=== PATIENT | male | born 1975 | race Caucasian/White ===

== ENCOUNTER 2022-03-14 11:39 | Emergency (ER) | payer MEDICAID, SELFPAY ==
[2022-03-14 11:53] VITALS: BP 152/78; PULSE 95; O2SAT 100
[2022-03-14 11:57] VITALS: BP 142/91; PULSE 99; RESP 20; TEMP 36.6; O2SAT 94; BMI 28.7
[2022-03-14 12:43] VITALS: PULSE 83; RESP 17; O2SAT 97
[2022-03-14] MEDS: ondansetron HCL 4 MG/2 ML VIAL IVPUSH (12:43)
--- NOTE | 2022-03-14 13:17 | ED.GENADULT ---
HPI - General Adult General Chief complaint: Overdose Stated complaint: OD,NARCAN GIVEN BY BYSTANDER W/GOOD RESULT PER EMS Time Seen by Provider: 03/14/22 12:10 Source: patient Mode of arrival: ambulatory Limitations: no limitations History of Present Illness HPI narrative: 46-year-old male history of substance abuse presents to the ED for overdose. Patient overdose on drugs and was given 4 mg Narcan by bystander and 2 mg given by EMS. Patient awaking and responded to Narcan. Patient has upper lip abscess. Patient does not want detox. Patient vomited and then just wants to sleep. Will re-evaluate Related Data Previous Rx's Medication Instructions Recorded cephalexin 500 mg capsule 500 mg PO QID 7 Days #28 cap 03/14/22 doxycycline hyclate 100 mg capsule 100 mg PO BID 7 Days #14 cap 03/14/22 Allergies Allergy/AdvReac Type Severity Reaction Status Date / Time No Known Allergies Allergy Unverified 07/16/20 15:17 [No Known Allergies*] Review of Systems Review of Systems: Overdose. Upper lip abscess Yes all other systems are reviewed and are negative [facility] Social History Social History Advance Directives: No Advance Directives Information Provided: No Physical Exam ED Vital Signs: Vital Signs - 24 hr 03/14/22 11:57 03/14/22 12:43 03/14/22 19:14 Temperature 97.8 F 98.7 F Pulse Rate 99 83 69 Respiratory Rate 20 17 16 Blood Pressure 142/91 H 123/77 Pulse Oximetry 94 97 94 BMI result Body Mass Index 28.7 Const General: cooperative, healthy appearing, comfortable, no acute distress and well developed Orientation/consciousness: patient oriented x3 HENMT Head: Yes normal to inspection, Yes No palpable skull fracture present, Yes normocephalic, Yes atraumatic and No abrasion Nose image: 1. Positive for redness and swelling. Rest of oral exam normal. 2. Small yellow drainage. Eyes General: appearance normal, both eyes and all related structures Neck Neck: Yes normal visual inspection, Yes full ROM, Yes no lymphadenopathy, Yes no meningeal signs, Yes trachea midline, Yes supple, No anterior neck swelling and No tender Chest Chest palpation & inspection: normal inspection of the chest and normal palpation of entire chest wall Resp Effort & Inspection: normal respiratory effort and able to speak in complete sentences Auscultation: clear to auscultation bilaterally Cardio Jugular venous distension: no JVD Heart sounds: S1 normal heart sound present and S2 normal heart sound present GI Inspection: Yes normal to inspection and No abdominal wall ecchymosis Palpation (GI): Soft to palpation, not firm, nontender, no guarding and not rigid General: No CVA tenderness and Yes no CVA tenderness Back/Spine/Pelvis Back: no CVA tenderness, No CVA tenderness and No back tenderness Skin General skin exam: no rashes or lesions noted and elasticity normal Neuro General: patient oriented x3, gait normal, no meningeal signs and CN's II-XI intact bilaterally Cranial nerves: Yes CN's II-XII intact bilaterally Extrem General: Yes normal to inspection and Yes full ROM Psych Appearance: grossly normal, well kempt and not disheveled Course Course Course Narrative: Patient placed on 2 L oxygen. Patient was vomiting so used given Zofran. Will address upper lip abscess. Reevaluation(s) Reevaluation #1: Patient alert oriented x3. Patient evaluated by care team/assistant women's soccer coach Sai and he was given resources for outpatient detox for opiate abuse. Patient admits to taking opioids which causes overdose. Patient states overdose was accidental. Bedside ultrasound was placed on the left upper lip and shows cellulitis cobblestone changes and no abscess to drained. Patient states for the past couple days he has been squeezing the pus out. Patient states initially he shaved and had a pimple above his top lip and then kept popping it and then it became swollen. Patient states for the past 4 days she started squeezing pus out. Patient will be discharged with antibiotic. Rest oral exam normal. Oral exam negative for uvular swelling, tongue swelling, dental/gum abscess, tongue floor, or swelling of neck/mandibular. No indication for incision and drainage. Time: 18:06 Medical Decision Making MDM Narrative Medical decision making narrative: Opioid abuse. Cellulitis Discharge Plan Discharge Clinical Impression: Opioid abuse, Cellulitis and abscess of face Patient Disposition: Home, Self-Care Instructions: Cellulitis (DC), Opioid Use Disorder (ED) Additional Instructions: Return to the ED for increased swelling of lips, sensation of throat closing, drooling, shortness of breath, chest pain, weakness, dizziness, worsening redness, or any other concerning symptoms. Please follow-up with primary care provider. Please follow-up with referrals to detox program given to her by assistant women's soccer coach/care team reimbursement consultant. Prescriptions: New cephalexin 500 mg capsule 500 mg PO QID 7 Days Qty: 28 0RF doxycycline hyclate 100 mg capsule 100 mg PO BID 7 Days Qty: 14 0RF Print Language: Swedish
--- NOTE | 2022-03-14 15:25 | MHC.RECOVSUP ---
Recovery Support note: Patient is a 46 year old male who presented to [facility] ED after an accidental overdose. This typewriter mechanic attempted to meet with patient to offer SUDE however patient is resting comfortably and not easily aroused at this time. Recovery Team will follow up with patient later on.
--- NOTE | 2022-03-14 16:56 | HO.SUDE ---
SUDE Patient is a 46 year old [place] speaking male who presented to [facility] ED after an accidental overdose. Patient reports he was recently released from incarceration and starting using yesterday due to life stressors. Patient is currently staying with his mother however reports that he cannot stay there permanently. Patient reports he has a geriatric social worker who is assisting him as he transitions out of incarceration. Patient has an appointment at the [facility] to get started on Suboxone. Patient is interested in therapy and recovery coaching and plans to engage in these services through [facility]. Patient reports previous overdoses occurring prior to incarceration. Patient has a history of multiple periods of incarceration. Patient has been psychiatrically hospitalized extensively in the past and has been diagnosed with bipolar disorder. Discussed outpatient recovery supports with patient. Education and information regarding [facility] provided to patient. Patient also provided with contact information for the Recovery Support Team in the event that he has questions or concerns after discharge.
[2022-03-14 19:14] VITALS: BP 123/77; PULSE 69; RESP 16; TEMP 37.1; O2SAT 94
[2022-03-14] MEDS: cephALEXin 500 MG CAPSULE PO (19:36)
[2022-03-14 23:29] VITALS: BP 126/78; PULSE 86; RESP 18; O2SAT 95
[2022-03-15 00:05] VITALS: RESP 18; O2SAT 95
[2022-03-15 02:40] VITALS: BP 132/74; PULSE 82; RESP 18; O2SAT 95
[2022-03-15 05:38] VITALS: BP 157/79; PULSE 83; RESP 16; O2SAT 95
[2022-03-15 07:47] VITALS: BP 126/67; PULSE 82; RESP 18; O2SAT 98
--- NOTE | 2022-03-15 07:49 | PC.NURSE ---
pt awake. nad. lip swollen. feels ready for discharge.
[2022-03-15 09:46] VITALS: BP 120/60; PULSE 78; RESP 18; TEMP 36.8; O2SAT 98
== END 2022-03-15 09:48 | disposition home or self-care (01) ==
PROVIDERS: Emergency Provider Emergency Medicine
DX: T40.1X1A Poisoning by heroin, accidental (unintentional), initial encounter (principal); Y92.9 Unspecified place or not applicable; K13.0 Diseases of lips; Z79.899 Other long term (current) drug therapy
CPT/HCPCS: 96374; 99284; J2405

== ENCOUNTER 2022-03-22 05:24 | Emergency (ER) | payer MEDICAID, SELFPAY ==
[2022-03-22 05:31] VITALS: BP 134/87; PULSE 81; RESP 20; TEMP 36.8; O2SAT 97; BMI 29.0
--- NOTE | 2022-03-22 05:36 | ED_ITS ---
HPI - Overdose General Chief Complaint: ETOH/Substance Use Stated Complaint: OVERDOSE/COCAINE Time Seen by Provider: 03/22/22 05:33 Source: patient Mode of arrival: EMS Limitations: no limitations History of Present Illness HPI Narrative: patient was with someone tonsweetie snorting cocaine when he became less responsive that person had a warrant out instead of bringing the patient inside they let the patient lay on the sidewalk and call 911 so they wouldn't get in trouble - patient given narcan by PD and woke up. VS stable with EMS. patient thought he was doing cocaine. on suboxone currently. complaint: accidental overdose Onset (ago): minute(s) Timing confirmed by: other (friend he was with) Context: Accidental Overdose: wanted to get high Associated symptoms: lethargy Treatments Prior to Arrival: narcan (intranasal by PD) Related Data Previous Rx's Medication Instructions Recorded cephalexin 500 mg capsule 500 mg PO QID 7 Days #28 cap 03/14/22 doxycycline hyclate 100 mg capsule 100 mg PO BID 7 Days #14 cap 03/14/22 Allergies Allergy/AdvReac Type Severity Reaction Status Date / Time No Known Allergies Allergy Unverified 07/16/20 15:17 [No Known Allergies*] Review of Systems Review of Systems: Constitutional : No Fever, No Chills ENT/Mouth : No Ear Pain, No Nasal Congestion, No sore throat Eyes: No Eye Pain, No Swelling, No Redness Cardiovascular : No Chest Pain, No SOB Respiratory : No Cough, No Sputum, No Dyspnea Gastrointestinal : No Nausea, No Vomiting, No Diarrhea, No Hematochezia, No Melena Genitourinary : No Dysuria, No Urinary Frequency, No Hematuria Musculoskeletal : No Myalgias Skin : No Skin Lesions, No rash Neuro : No Weakness, No Numbness, No Paresthesias, No Dizziness, No Headache Psych : no Anxiety, no Depression, no SI/HI Heme/Lymph: No Lymphadenopathy Endocrine : No Polyuria, No Polydipsia All other systems reviewed and are negative [facility] Past Medical History Attestation statement: The following information was validated with the patient. Medical History (Updated 03/22/22 @ 05:50 by Beryl Watt DO) Substance abuse Social History Social History (Updated 03/22/22 @ 05:39 by Beryl Watt DO) Alcohol intake: current Alcohol intake frequency: 0-2 drinks per day Patient Tobacco Use Status: Tobacco use Unknown Use of substances other than those prescribed or required for medical reasons: Yes Substance Use Type: Crack/Cocaine and Opiates Substance Use Frequency: Chronic Longstanding Last Used Substance: Just Prior to Admission Any prior treatment program specific to substance use: No Physical Exam Vital Signs: Vital Signs: Last Vital Signs Temp 98.2 F 03/22/22 05:31 Pulse 77 03/22/22 06:07 Resp 20 03/22/22 06:07 BP 133/75 03/22/22 06:07 Pulse Ox 99 03/22/22 06:07 BMI result Body Mass Index 29.0 Appearance: Alert. Oriented X3. No acute distress. Yawning Eyes: Pupils equal, round and reactive to light. ENT: Pharynx normal. Neck: Normal inspection. Neck supple. CVS: Normal heart rate and rhythm. Pulses normal. Respiratory: No respiratory distress. Breath sounds normal. Abdomen: Soft and nontender. Skin: Skin warm and dry. Normal skin color. Normal skin turgor. Piloerection Extremities: No lower extremity edema. Neuro: Oriented X 3. No motor deficit. No sensory deficit. Course Course Course Narrative: signed out to Dr. Rome pending clinical sobriety MDM - Overdose MDM Narrative Medical decision making narrative: 46 yo male with hx of substance abuse maintained on suboxone here after using cocaine (snorting) he was found laying down has no signs of head trauma, VS are stable, no SI - he responded to narcan with PD. Will observe to make sure he remains clinically sober. He reports he has narcan at home. He declines help with detox/recovery. He does not want to speak to anyone (no SUDE) evaluation. Discharge Plan Discharge Clinical Impression: Overdose Patient Disposition: Still a Patient Instructions: Adult Overdose (ED) Additional Instructions: dejar de usar drogas regresar al servicio de urgencias por cualquier empeoramiento de los s?ntomas o inquietudes Prescriptions: No Action cephalexin 500 mg capsule 500 mg PO QID 7 Days Qty: 28 0RF doxycycline hyclate 100 mg capsule 100 mg PO BID 7 Days Qty: 14 0RF Print Language: Albanian
[2022-03-22] MEDS: ondansetron HCL 4 MG/2 ML VIAL IVPUSH (06:01)
[2022-03-22 06:07] VITALS: BP 133/75; PULSE 77; RESP 20; O2SAT 99
[2022-03-22 07:20] VITALS: BP 133/79; PULSE 77; RESP 18; TEMP 36.9; O2SAT 98
--- NOTE | 2022-03-22 08:32 | PC.NURSE ---
this rn at bedside to d/c pt, pt states that he is +si and is requesting to speak with md ivon aware.
[2022-03-22 11:04] VITALS: BP 125/84; PULSE 80; RESP 16; TEMP 37.1; O2SAT 98
[2022-03-22 14:34] VITALS: BP 143/72; PULSE 66; RESP 18; TEMP 36.2; O2SAT 100
--- NOTE | 2022-03-22 15:18 | HO.SUDE ---
Met with pt in 6H after consult to CARE Team after overdose and endorsing SI. Pt awake, sitting in recliner upon approach, appears comfortable and does not appear to be in withdrawal. Very soft spoken. Pt reports having been released from long term 5 weeks ago after 7 years. While in long term, pt was using Suboxone. Upon release, pt went to [facility] to initiate outpatient and connect with supports. Pt reports Suboxone has been helpful, states I just take little pieces, I don't even need the whole thing. Pts last script, per Kim, was 5/10 for a 7 day prescription, 16 mg daily. Pt reports increase in stress has resulted in patient experiencing increased symptoms of depression. Pt is unstably housed, has been alternating between staying with mom and uncle. Both are [employer] [address] so pt is unable to permanently reside with them. Pt also reports difficulty acclimating to life outside of long term. Prior to [place] [facility], pt reports using less than 1 bag heroin, [place], as well as cocaine. Pt reports female that was with him left him alone after calling 911 for pt having a hard time breathing. Pt states I had to drag myself downstairs from the 3rd floor. Pt remembers Narcan administration. Pt states I don't have a habit and I want help. I jumped off of a bridge once and I don't want to do that again. Pt reports feeling unsafe returning to the community and would like to speak to crisis. Pt unable to identify plan or intent at this time. Discussed with CARE Team as well as charge nurse.
[2022-03-22 16:39] VITALS: BP 127/78; PULSE 66; RESP 22; TEMP 36.9; O2SAT 100
[2022-03-22 17:30] LABS: MANUAL DIFF FLAG NO
[2022-03-22 17:31] LABS: Basophils Percent Auto 0.3 % (0-2); Eosinophils Absolute Auto 0.1 X10*3/uL (0.0-0.4); Eosinophils Percent Auto 1.7 % (0-4); Hematocrit 41.9 % (42.0-52.0); Hemoglobin 13.9 g/dl (14.0-18.0); Imm Gran Abs Auto 0.01 X10*3/uL (0.00-0.03); Imm Gran Pct Auto 0.2 % (0.0-0.4); Lymphocytes Absolute Auto 1.4 X10*3/uL (1.2-4.9); Lymphocytes Percent Auto 23.6 % (20-40); Mean Corpuscular HGB Conc 33.2 g/dl (31.0-36.0); Mean Corpuscular Hemoglobin 30.3 pg (27.0-33.0); Mean Corpuscular Volume 91.5 fL (80.0-98.0); Mean Platelet Volume 10.2 fL (9.4-12.4); Monocytes Absolute Auto 0.4 X10*3/uL (0.1-1.2); Monocytes Percent Auto 6.5 % (2-11); Neutrophils Percent Auto 67.7 % (45-73); Platelet Count 246 X10*3/uL (160-400); Red Blood Count 4.58 X10*6/uL (4.60-5.80); Red Cell Distribution Width 11.9 % (11.0-16.0); White Blood Count 5.9 X10*3/uL (4.8-10.8)
[2022-03-22 17:47] LABS: Ethanol < 10 mg/dL
[2022-03-22 17:48] LABS: Amphetamine Screen Urine Not Detected (Not Detect); Barbiturates, Urine Not Detected (Not Detect); Benzodiazepines Screen Urine Not Detected (Not Detect); Cannabinoid Screen Urine Not Detected (Not Detect); Cocaine Screen Urine POSITIVE (Not Detect); Fentanyl, urine POSITIVE (Not Detect); Opiate Screen Urine POSITIVE (Not Detect); Phencyclidine Screen Urine Not Detected (Not Detect)
[2022-03-22 17:49] LABS: COVID-19 Test Negative (Negative); IDNOW Serial# 55D5AD1C; IDNOW Serial# 9DB6401D; Influenza A Negative (Negative); Influenza B2 Negative (Negative)
[2022-03-22 17:50] LABS: Alanine Aminotransferase 33 U/L (0-40); Albumin Level 3.7 g/dL (3.5-5.0); Alkaline Phosphatase 75 U/L (39-117); Anion Gap 12 (12-20); Aspartate Amino Transferase 44 U/L (5-37); Bilirubin Total 0.2 mg/dL (0.0-1.0); Blood Urea Nitrogen 8 mg/dL (9-16); Calcium 8.9 mg/dL (8.4-10.2); Carbon Dioxide 27 mmol/L (22-29); Chloride 105 mmol/L (96-108); Estimated Glomerular Filt Rate > 60; Glucose Random 162 mg/dL (60-115); Potassium 3.5 mmol/L (3.3-5.1); Sodium 140 mmol/L (135-145); Total Protein 6.9 g/dL (6.5-8.0)
== END 2022-03-22 19:46 | disposition home or self-care (01) ==
PROVIDERS: Emergency Provider Emergency Medicine Emergency Medical Services
DX: T40.5X1A Poisoning by cocaine, accidental (unintentional), initial encounter (principal); Y92.9 Unspecified place or not applicable; F14.19 Cocaine abuse with unspecified cocaine-induced disorder; F11.10 Opioid abuse, uncomplicated; R53.83 Other fatigue; Z20.822 Contact with and (suspected) exposure to COVID-19; Z79.899 Other long term (current) drug therapy
CPT/HCPCS: 36415; 80053; 80307; 82077; 85025; 87502; 87635; 96374; 99284; J2405

== ENCOUNTER 2022-03-23 11:24 | Emergency (ER) | payer MEDICAID, SELFPAY ==
[2022-03-23 11:25] VITALS: BP 127/82; PULSE 16; RESP 16; TEMP 36; O2SAT 100; BMI 28.1
--- NOTE | 2022-03-23 13:39 | ED.OVERDOSE ---
HPI - Overdose General Chief Complaint: Overdose Stated Complaint: OD Time Seen by Provider: 03/23/22 13:02 Source: patient Mode of arrival: ambulatory Limitations: no limitations History of Present Illness HPI Narrative: Patient presents to the emergency department today ambulatory through triage with reports of heroin usage today. He reports that he snorted 1 bag of heroin, and his nephew was concerned about his presentation. Initially a at triage he reported that his nephew administered Narcan. During my initial intake patient denies receiving Narcan. Patient was discharged from the emergency department yesterday with a plan to go to a detox program in [place] that his sister is working with him to establish. He is currently in a Suboxone Clinic through [facility] by his report. At this time he declines speaking with head boys tennis coach, declines interest in speaking with N/ care team. Denies suicidal or homicidal ideations. Related Data Previous Rx's Medication Instructions Recorded cephalexin 500 mg capsule 500 mg PO QID 7 Days #28 cap 03/14/22 doxycycline hyclate 100 mg capsule 100 mg PO BID 7 Days #14 cap 03/14/22 Allergies Allergy/AdvReac Type Severity Reaction Status Date / Time No Known Allergies Allergy Verified 03/23/22 11:25 [No Known Allergies*] Review of Systems Review of Systems: Constitutional: No fever, chills, weakness or fatigue. Skin: No rash or itching. Cardiovascular: No chest pain, chest pressure or chest discomfort. No palpitations or pedal edema. Respiratory: No shortness of breath, cough or sputum production. Gastrointestinal: No anorexia, nausea, vomiting or diarrhea. No abdominal pain or blood in stool. Genitourinary: No burning micturition. No urinary frequency or incontinence. Musculoskeletal: No muscle pain, back pain, joint pain or stiffness. Psychiatric: No depression or anxiety. denies SI/HI Yes all other systems are reviewed and are negative PMFSH Past Medical History Attestation statement: The following information was validated with the patient. Source: old records reviewed Medical History Substance abuse Social History Social History Alcohol intake: current Alcohol intake frequency: 0-2 drinks per day Patient Tobacco Use Status: Tobacco use Unknown Substance Use Type: Crack/Cocaine and Opiates Advance Directives: No Advance Directives Information Provided: No Physical Exam Vital Signs: Vital Signs: Last Vital Signs Temp 96.8 F 03/23/22 11:25 Pulse 16 L 03/23/22 11:25 Resp 16 03/23/22 11:25 BP 127/82 03/23/22 11:25 Pulse Ox 100 03/23/22 11:25 BMI result Body Mass Index 28.1 Vital signs have been reviewed as normal and appeared to be correct. Blood pressure normal.? Heart rate normal.? Respiration rate normal. Temperature normal.? Oxygen saturation normal. Appearance: Alert.?Oriented to person, place and time. No acute distress.?Normal affect. Eyes: Pupils equal, round and reactive to light.? ENT: Pharynx normal.?? Neck: Normal inspection.? Neck supple.?? CVS: Heart sounds normal. Normal heart rate and rhythm.? Pulses normal.?? Respiratory: No respiratory distress.? Lung sounds clear to auscultation bilaterally?? Abdomen: Soft and non-tender. Normoactive bowel sounds. ?? Skin: Skin warm and dry.? Normal skin color.? Extremities: No lower extremity edema.? Neuro: Moves all extremities spontaneously. Sensation intact bilaterally. CN II-XII intact. No focal neuro deficits. Ambulates with normal steady gait. Course Course Course Narrative: patient is a 46-year-old male with a past medical history of polysubstance abuse presenting to the emergency department walking into triage reporting that he snorted 1 bag of heroin was provided Narcan by his nephew. During my exam he states that he did not receive Narcan, his nephew was simply concerned about his presentation after snorting heroin. Patient was evaluated in the emergency department yesterday similarly after an overdose when snorting cocaine. Initially declined wanting to speak with crisis, his but at the time of discharge patient was reporting thoughts of self-harm and requesting to see the to mental health counselor. The 10 was consult did as he felt unsafe. Patient evaluated by care team and discussed plan of care for discharge home as he was going to be placed in a detox program in his sister was going to facilitate this. He was discharged home yesterday evening. Today he declines interest in speaking with head boys tennis coach/ care team for SVETLANA eval, denies suicidal or homicidal ideations. He was monitored in the emergency department for 3 hours without any signs of overdose, respiratory distress, remained conscious alert and oriented x3, ambulatory with a steady gait. Patient cleared for discharge home, offered nasal Narcan and he declined stating that he already has this medication at home. MDM - Overdose Medical Records Attestation: I reviewed the patient's medical records. Discharge Plan Discharge Clinical Impression: Drug overdose Patient Disposition: Home, Self-Care Instructions: Adult Overdose (ED) Additional Instructions: It is advised to stop the use of heroin, cocaine, and all additional recreational drugs. You were offered to speak with our head boys tennis coach is or be age and crisis, but you declined their services. As you advised to are currently working with her sister to get into a detox program. please return to the emergency department any new or worsening symptoms or concerns Prescriptions: No Action cephalexin 500 mg capsule 500 mg PO QID 7 Days Qty: 28 0RF doxycycline hyclate 100 mg capsule 100 mg PO BID 7 Days Qty: 14 0RF Interventions: ED Discharge Assessment Last Done: 03/23/22 14:28 Discharge Date/Time: 03/23/22 14:29
--- NOTE | 2022-03-23 14:14 | HO.SUDE ---
This casualty underwriter met w/ pt. Pt states has 3 narcan kits, knows how to use them. Pt states this a.m went to buy cigarettes and was given one bag of heroin, snorted bag. Pt states nephew drove pt to ED concern for Overdose. Pt states, has plans to go to Treatment Program in [place] that is religiously affiliated. Pt not interested in MAT at this times states does not want to be addicted to anything including Suboxone . Pt states history of all level of SVETLANA care, detox, rehab, programs. Pt states has therapist through [facility], [place]. Pt states called therapist today to notify of plan. This casualty underwriter reviewed resources w/ pt, provided resource materials. Discussed w/ pts RN.
== END 2022-03-23 14:29 | disposition home or self-care (01) ==
PROVIDERS: Emergency Provider Emergency Medicine Emergency Medical Services
DX: T40.1X1A Poisoning by heroin, accidental (unintentional), initial encounter (principal); Y92.009 Unspecified place in unspecified non-institutional (private) residence as the place of occurrence of the external cause; F19.10 Other psychoactive substance abuse, uncomplicated
CPT/HCPCS: 99283

== ENCOUNTER 2022-03-25 12:00 | Emergency (ER) | payer MEDICAID, SELFPAY ==
--- NOTE | 2022-03-25 12:07 | ED.OVERDOSE ---
HPI - Overdose General Chief Complaint: Overdose Stated Complaint: OPIOID OD,NARCAN GIVEN W/GOOD RESULT PER EMS Time Seen by Provider: 03/25/22 12:06 Source: patient and EMS Mode of arrival: EMS Limitations: altered mental status History of Present Illness HPI Narrative: 46 y/o male presents to the ER for evaluation after opioid overdose. He was reportedly found on the ground at home in his apartment barely breathing after a family member came back from taking a shower. EMS was called and patient was found agonally breathing. Nasal trumpet was placed and he was bagged. He was given 6 mg IN narcan and patients respirations and mental status improved. He started vomiting en route. This is his 3rd ER visit this week for overdose. MD complaint: accidental overdose Onset (ago): unknown Timing confirmed by: family member Intent: unwilling to say How Overdose Was Discovered: called family/friend Context: Accidental Overdose: uncertain what happened Treatments Prior to Arrival: narcan Related Data Previous Rx's Medication Instructions Recorded cephalexin 500 mg capsule 500 mg PO QID 7 Days #28 cap 03/14/22 doxycycline hyclate 100 mg capsule 100 mg PO BID 7 Days #14 cap 03/14/22 Allergies Allergy/AdvReac Type Severity Reaction Status Date / Time No Known Allergies Allergy Verified 03/23/22 11:25 [No Known Allergies*] Review of Systems Review of Systems: Constitutional: No Fever, No Chills ENT/Mouth: No sore throat, No Rhinorrhea, No Swallowing Difficulty, +epistaxis Cardiovascular: No Chest Pain, No SOB, No Orthopnea, No Edema Respiratory: No Cough, No Sputum, No Wheezing, No dyspnea Gastrointestinal: + Nausea, + Vomiting, No Diarrhea, No abdominal Pain, No Hematochezia, No Melena Musculoskeletal: No joint pain, + Myalgias Skin: No Skin Lesions, No rash Neuro: No Weakness, No Numbness, No Dizziness, + Headache Psych: No Anxiety/Panic, No Depression, No SI Heme/Lymph: No Bruising, No Lymphadenopathy PMFSH Past Medical History Medical History Substance abuse Social History Social History Alcohol intake: current Alcohol intake frequency: does not drink Patient Tobacco Use Status: Tobacco use Unknown Use of substances other than those prescribed or required for medical reasons: Yes Substance Use Type: Heroin Advance Directives: No Advance Directives Information Provided: No Physical Exam Vital Signs: Vital Signs: Last Vital Signs Temp 97.9 F 03/25/22 15:29 Pulse 60 03/25/22 15:29 Resp 16 03/25/22 15:29 BP 127/78 03/25/22 15:29 Pulse Ox 99 03/25/22 15:29 BMI result Body Mass Index 27.4 Appearance: Alert middle aged male, curled in the stretcher. Oriented X3. No acute distress. Eyes: Pupils equal, round and reactive to light. ENT: Pharynx normal. Dried blood around the left nare, no active bleeding. no septal hematoma. Neck: Normal inspection. Neck supple. CVS: Normal heart rate and rhythm. Pulses normal. Respiratory: No respiratory distress. Breath sounds normal. Abdomen: Soft and nontender. +BS x4 Skin: Skin warm and dry. Normal skin color. Normal skin turgor. No rashes. Extremities: No lower extremity edema. Upper extremities with well healed self inflicted linear lacerations on the bilateral forearms. Neuro: Oriented X 3. Awake, nonfocal Course Course Course Narrative: 46 yo male presenting with heroin overdose s/p 6 mg IN Narcan. Vomiting on arrival. Nasal trumpet removed and he has bleeding from the left nare. No visible hematemesis. Will check basic labs and given Zofran. Will monitor in the ER for 2-3 hours s/p narcan. Reevaluation(s) Reevaluation #1: H/H stable. No active bleeding. head wrestling coach spoke with patient and he is not wanting treatment. He states he needs to follow back up in his Suboxone clinic on Monday. He is planning on meeting with his counselor to help him get his food stamps and a new ID. He is adamant he does not need treatment in the mean time and he does not do drugs everyday. Explained how he almost multiple times this week and I expressed my concern for OD over the holiday weekend. He assured me that he will not use any heroin and will follow up with his clinic next week. Consultations Consultation #1: CARE team / assistant tennis coach MDM - Overdose Lab Data Result diagrams: 03/25/22 12:49 03/25/22 12:49 Labs: Lab Results 03/25/22 03/25/22 Range/Units 12:49 12:49 WBC 8.6 (4.8-10.8) X10*3/uL RBC 4.50 L (4.60-5.80) X10*6/uL Hgb 13.7 L (14.0-18.0) g/dl Hct 41.1 L (42.0-52.0) % MCV 91.3 (80.0-98.0) fL MCH 30.4 (27.0-33.0) pg MCHC 33.3 (31.0-36.0) g/dl RDW 12.1 (11.0-16.0) % Plt Count 228 (160-400) X10*3/uL MPV 10.8 (9.4-12.4) fL Immature Gran % (Auto) 0.3 (0.0-0.4) % Neut % (Auto) 87.5 H (45-73) % Lymph % (Auto) 7.1 L (20-40) % Jay % (Auto) 4.3 (2-11) % Eos % (Auto) 0.5 (0-4) % Baso % (Auto) 0.3 (0-2) % Lymph # (Auto) 0.6 L (1.2-4.9) X10*3/uL Jay # (Auto) 0.4 (0.1-1.2) X10*3/uL Eos # (Auto) 0.0 (0.0-0.4) X10*3/uL Baso # (Auto) 0.0 (0.0-0.2) X10*3/uL Abs Immat Gran (auto) 0.03 (0.00-0.03) X10*3/uL Absolute Neuts (auto) 7.6 (2.0-8.3) x10*3/uL Absolute Nucleated RBC 0.000 (0.0-0.012) X10*3/uL Nucleated RBC % (auto) 0.0 (0.0-0.2) /100WBC Sodium 140 (135-145) mmol/L Potassium 3.5 (3.3-5.1) mmol/L Chloride 104 (96-108) mmol/L Carbon Dioxide 25 (22-29) mmol/L Anion Gap 15 (12-20) BUN 12 (9-16) mg/dL Creatinine 1.21 (0.5-1.4) mg/dL Estim Creat Clear Calc 74.5 Estimated GFR > 60 Random Glucose 153 H (60-115) mg/dL Calcium 9.4 (8.4-10.2) mg/dL Magnesium 2.4 (1.6-2.6) mg/dL Total Bilirubin 0.5 (0.0-1.0) mg/dL Direct Bilirubin 0.2 (0.0-0.5) mg/dL AST 65 H (5-37) U/L ALT 44 H (0-40) U/L Alkaline Phosphatase 75 (39-117) U/L Total Protein 6.7 (6.5-8.0) g/dL Albumin 3.7 (3.5-5.0) g/dL Critical Care Time Critical Care Time Critical Care Time: No Discharge Plan Discharge Clinical Impression: Drug overdose Patient Disposition: Home, Self-Care Instructions: Adult Overdose (ED) Additional Instructions: DO NOT USE HEROIN - IT CAN KILL YOU Follow up with your Suboxone Clinic SOON POSSIBLE. Prescriptions: No Action cephalexin 500 mg capsule 500 mg PO QID 7 Days Qty: 28 0RF doxycycline hyclate 100 mg capsule 100 mg PO BID 7 Days Qty: 14 0RF
[2022-03-25 12:11] VITALS: BP 146/92; PULSE 100; O2SAT 100
[2022-03-25 12:19] VITALS: BP 126/87; PULSE 76; RESP 20; O2SAT 95; BMI 27.4
[2022-03-25] MEDS: Ondansetron ODT 4 MG TAB.RAPDIS TRANSLINGU (12:59)
[2022-03-25 13:03] VITALS: BP 121/76; PULSE 75; RESP 18; O2SAT 99
--- NOTE | 2022-03-25 13:09 | PC.NURSE ---
security called for a global climate change researcher
[2022-03-25 13:26] LABS: MANUAL DIFF FLAG NO
[2022-03-25 13:35] LABS: Basophils Percent Auto 0.3 % (0-2); Eosinophils Percent Auto 0.5 % (0-4); Hematocrit 41.1 % (42.0-52.0); Hemoglobin 13.7 g/dl (14.0-18.0); Imm Gran Abs Auto 0.03 X10*3/uL (0.00-0.03); Imm Gran Pct Auto 0.3 % (0.0-0.4); Lymphocytes Absolute Auto 0.6 X10*3/uL (1.2-4.9); Lymphocytes Percent Auto 7.1 % (20-40); Mean Corpuscular HGB Conc 33.3 g/dl (31.0-36.0); Mean Corpuscular Hemoglobin 30.4 pg (27.0-33.0); Mean Corpuscular Volume 91.3 fL (80.0-98.0); Mean Platelet Volume 10.8 fL (9.4-12.4); Monocytes Absolute Auto 0.4 X10*3/uL (0.1-1.2); Monocytes Percent Auto 4.3 % (2-11); Neutrophils Absolute Auto 7.6 x10*3/uL (2.0-8.3); Neutrophils Percent Auto 87.5 % (45-73); Platelet Count 228 X10*3/uL (160-400); Red Cell Distribution Width 12.1 % (11.0-16.0); White Blood Count 8.6 X10*3/uL (4.8-10.8)
[2022-03-25 13:44] LABS: Alanine Aminotransferase 44 U/L (0-40); Albumin Level 3.7 g/dL (3.5-5.0); Alkaline Phosphatase 75 U/L (39-117); Anion Gap 15 (12-20); Aspartate Amino Transferase 65 U/L (5-37); Bilirubin Direct 0.2 mg/dL (0.0-0.5); Bilirubin Total 0.5 mg/dL (0.0-1.0); Blood Urea Nitrogen 12 mg/dL (9-16); Calcium 9.4 mg/dL (8.4-10.2); Carbon Dioxide 25 mmol/L (22-29); Chloride 104 mmol/L (96-108); Creatinine Clr Calc Pharmacy 74.5; Estimated Glomerular Filt Rate > 60; Glucose Random 153 mg/dL (60-115); Magnesium 2.4 mg/dL (1.6-2.6); Potassium 3.5 mmol/L (3.3-5.1); Sodium 140 mmol/L (135-145); Total Protein 6.7 g/dL (6.5-8.0)
--- NOTE | 2022-03-25 14:33 | HO.SUDE ---
Met with pt in ED 12 after Care Team consult was placed for overdose. Pt had spoken to chief engineer drilling and recovery and declined support. Pt familiar with t/w from previous ED visits. Pt reports after dc on 03/23 went to Mom's to stay the night and day on . Pt reports night was spent on the street and this morning went to Uncle's house. While there, pt reports using 1 bag heroin which resulted in overdose. Pt continues to report not using on a daily basis and hesitancy for treatment. Pt continues to hope to go to sister's program in [place]. Reports that after dc on 03/23 there were not beds available. Pt currently reporting withdrawal symptoms including body aches and upset stomach. Pt states I can't think at all right now. Pt open to small dose methadone to help with symptoms and to continue discussion at a later time. Pt encouraged to think about local [facility] while waiting for a bed in [place], pt has not declined this option to t/w. Discussed with provider, will order 10 mg methadone and continue to follow.
[2022-03-25 15:29] VITALS: BP 127/78; PULSE 60; RESP 16; TEMP 36.6; O2SAT 99
[2022-03-25] MEDS: methADONE HCl 20 MG/2 ML ORAL.CONC 10 MG PO (15:42)
--- NOTE | 2022-03-25 17:19 | PC.NURSE ---
men's basketball coach speaking with the pt
--- NOTE | 2022-03-25 17:28 | MHC.RECOVSUP ---
? Reason for consult Recovery Support o Current location: ED12 o Identified substance use concern: Heroin - Overdose - Support ? Intervention: o Community resources provided o Harm reduction discussion ? Plan: o Patient to follow up with H after discharge ? Additional information: Met with Patient and we talk Harm Reduction And Recovery... We talk about [facility] and other resources...
[2022-03-25] MEDS: Naloxone HCl Nasal TAKE HOME 4 MG SPRAY NOSTRILALT (18:41)
[2022-03-25 18:42] VITALS: BP 104/84; PULSE 91; RESP 18; O2SAT 99
== END 2022-03-25 18:49 | disposition home or self-care (01) ==
PROVIDERS: Physician Assistant; Emergency Provider Emergency Medicine
DX: T40.1X1A Poisoning by heroin, accidental (unintentional), initial encounter (principal); R40.4 Transient alteration of awareness; Y92.039 Unspecified place in apartment as the place of occurrence of the external cause; F19.10 Other psychoactive substance abuse, uncomplicated
CPT/HCPCS: 36415; 80048; 80076; 83735; 85025; 99284

== ENCOUNTER 2022-07-31 11:59 | Emergency (ER) | payer MEDICAID, SELFPAY | END 2022-07-31 13:22 | disposition left against medical advice (07) | PROVIDERS: Emergency Provider Emergency Medicine | DX: F41.1 Generalized anxiety disorder (principal); F43.0 Acute stress reaction ==

== ENCOUNTER 2022-10-17 19:01 | Emergency (ER) | payer MEDICAID, SELFPAY ==
[2022-10-17 19:07] VITALS: BP 159/93; PULSE 95; RESP 16; TEMP 36.4; O2SAT 100; BMI 25.8
[2022-10-17 19:18] VITALS: BP 133/74; PULSE 82; RESP 18; TEMP 36.6; O2SAT 100
[2022-10-17 20:00] VITALS: BP 113/78; PULSE 67; RESP 16; TEMP 36.3; O2SAT 98
--- NOTE | 2022-10-17 21:59 | ED.OVERDOSE ---
HPI - Overdose General Chief Complaint: Overdose Stated Complaint: OD Time Seen by Provider: 10/17/22 19:04 Source: patient Mode of arrival: wheelchair Limitations: no limitations History of Present Illness HPI Narrative: Patient was brought via prior to unknown vehicle to the emergency room. Patient was dropped off unconscious, not breathing. On arrival, patient received 12 mg of intranasal Narcan. Patient needed to be ventilated with bag valve mask. Patient had good response to Narcan. When patient woke up, patient denies suicidal or homicidal ideation, patient admitted to using heroin prior to arrival. Patient states that he used 1 bag, likely laced with fentanyl. Related Data Previous Rx's Medication Instructions Recorded cephalexin 500 mg capsule 500 mg PO QID 7 days #28 caps 03/14/22 doxycycline hyclate 100 mg capsule 100 mg PO BID 7 days #14 caps 03/14/22 Allergies Allergy/AdvReac Type Severity Reaction Status Date / Time No Known Allergies Allergy Verified 03/23/22 11:25 [No Known Allergies*] Review of Systems Review of Systems: Constitutional : No Weight loss, No Fever, No Chills, No Night Sweats, No Fatigue, No Malaise ENT/Mouth : No Hearing loss, No Ear Pain, No Nasal Congestion, No Sinus Pain, No Hoarseness, No sore throat, No Rhinorrhea, No Swallowing Difficulty Eyes: No Eye Pain, No Swelling, No Redness, No Foreign Body, No Discharge, No Vision Changes Cardiovascular : No Chest Pain, No SOB, No Dyspnea on Exertion, No Orthopnea, No Edema, No Palpitations Respiratory : No Cough, No Sputum, No Wheezing, No Smoke Exposure, No Dyspnea Gastrointestinal : No Nausea, No Vomiting, No Diarrhea, No Constipation, No abdominal Pain, No Hematochezia, No Melena Genitourinary : no irregular bleeding, No Dysuria, No Urinary Frequency, No Hematuria, No Urinary Incontinence, No Urgency, No Flank Pain, No Urinary Flow Changes, No Hesitancy Musculoskeletal : No joint pain, No Myalgias, No Joint Swelling Skin : No Skin Lesions, No rash Neuro : No Weakness, No Numbness, No Paresthesias, No Loss of Consciousness, No Dizziness, No Headache Psych : No Anxiety/Panic, No Depression, No SI/HI/AH/VH, admits to drug abuse Heme/Lymph: No Bruising, No Bleeding,No Lymphadenopathy Endocrine : No Polyuria, No Polydipsia, No Temperature Intolerance [facility] Past Medical History Medical History Substance abuse Social History Social History Alcohol intake: current Alcohol intake frequency: does not drink Patient Tobacco Use Status: Tobacco use Unknown Substance Use Type: Heroin Advance Directives: No Physical Exam Vital Signs: Vital Signs: Last Vital Signs Temp 97.4 F 10/17/22 20:00 Pulse 67 10/17/22 20:00 Resp 16 10/17/22 20:00 BP 113/78 10/17/22 20:00 Pulse Ox 98 10/17/22 20:00 O2 Del Method 10/17/22 20:00 BMI result Body Mass Index 25.8 Const: Other: Appearance: Alert. Oriented X3. No acute distress. Eyes: Pupils equal, round and reactive to light. On arrival, patient had pinpoint pupils ENT: Pharynx normal. Neck: Normal inspection. Neck supple. No lymph nodes noted. No crepitus CVS: Normal heart rate and rhythm. Pulses normal. Normal S1 and S2 Respiratory: No respiratory distress. Breath sounds normal. No Wheezing. No rales Abdomen: Soft and nontender. No rigidity. No distention. Skin: Skin warm and dry. Normal skin color. Normal skin turgor. Extremities: No lower extremity edema. No Lacerations. No Rash Neuro: Oriented X 3. No motor deficit. No sensory deficit. Moving all extremities. No slurred speech. CN 2 through 12 grossly intact Psych: calm, cooperative, normal affect Course Course Course Narrative: Patient is awake, alert and oriented x3, no acute distress. Patient's oxygen saturation has remained above 90%. Patient states that he remembers using half bag of heroin and does not remember anything else and so he was in the hospital. Patient states that he is not interested in being evaluated by the care team or substance abuse treatment. Patient was provided with home Narcan Discharge Plan Discharge Clinical Impression: Drug overdose Patient Disposition: Home, Self-Care Instructions: Adult Overdose (ED) Additional Instructions: Please follow-up with your primary care physician tomorrow. If you have any worsening or new symptoms, please return to the emergency room or call 911 Prescriptions: No Action cephalexin 500 mg capsule 500 mg PO QID 7 Days Qty: 28 0RF doxycycline hyclate 100 mg capsule 100 mg PO BID 7 Days Qty: 14 0RF
[2022-10-17] MEDS: Naloxone HCl Nasal TAKE HOME 4 MG SPRAY NOSTRILALT (22:17)
[2022-10-17 22:26] VITALS: BP 118/64; PULSE 72; RESP 16; TEMP 36.1; O2SAT 98
--- NOTE | 2022-10-17 22:28 | HO.SUDE ---
Pt declined SUDE
--- NOTE | 2022-10-18 07:45 | ECG_ITS ---
Test Reason : OVERDOSE Blood Pressure : / mmHG Vent. Rate : 096 BPM Atrial Rate : 096 BPM P-R Int : 146 ms QRS Dur : 070 ms QT Int : 356 ms P-R-T Axes : 074 080 065 degrees QTc Int : 449 ms Normal sinus rhythm Normal ECG No previous ECGs available Referred By: Yadira Rosado Electronically Signed By:Jorge Portillo
== END 2022-10-17 22:44 | disposition home or self-care (01) ==
PROVIDERS: Emergency Provider Emergency Medicine
DX: T40.1X1A Poisoning by heroin, accidental (unintentional), initial encounter (principal); Y92.9 Unspecified place or not applicable; F11.10 Opioid abuse, uncomplicated; Z71.51 Drug abuse counseling and surveillance of drug abuser
CPT/HCPCS: 93005; 99284; 99285

== ENCOUNTER 2022-11-02 20:44 | Inpatient (IN) | payer OTHER, MEDICAID, SELFPAY ==
[2022-11-02 20:53] VITALS: BP 125/85; BP 126/87; PULSE 100; PULSE 72; RESP 18; TEMP 36.8; O2SAT 100; BMI 21.9
--- NOTE | 2022-11-02 21:01 | PC.NURSE ---
Pt arrives via ambulace for overdose. Pt is sleepy but able to answe questions appropriately. Pt continues to fall asleep. DR. ANAND AT PT SIDE.
[2022-11-02] MEDS: 0.9 % Sodium Chloride 1,000 ML 999 ML IV (21:06)
[2022-11-02] MEDS: ondansetron HCL 4 MG/2 ML VIAL IVPUSH (21:09)
--- NOTE | 2022-11-02 21:14 | ED_ITS ---
HPI - Overdose General Chief Complaint: Overdose Stated Complaint: overdose Time Seen by Provider: 11/02/22 20:50 Source: patient Mode of arrival: EMS Limitations: no limitations History of Present Illness HPI Narrative: Patient wth history of heroin abuse uses almost every day today he used 1 bag of heroin called Mickey bolaños became unconscious was given 8 mg of intranasal Narcan by EMS post Narcan patient vomited received 4 mg of IV Zofran. Patient denies any suicidal ideation or intentional overdose on arrival asking for help to go to detox Related Data Home Medications Medication Instructions Recorded Confirmed No Known Home Meds 11/03/22 11/03/22 Allergies Allergy/AdvReac Type Severity Reaction Status Date / Time No Known Allergies Allergy Verified 03/23/22 11:25 [No Known Allergies*] Review of Systems Review of Systems: Yes all other systems are reviewed and are negative [facility] Past Medical History Medical History Substance abuse Social History Social History Alcohol intake: former Patient Tobacco Use Status: Tobacco use Unknown Smoked in Last 30 Days: Yes Substance Use Type: Heroin Advance Directives: No Physical Exam Vital Signs: Vital Signs: Last Vital Signs Temp 97.8 F 11/03/22 01:19 Pulse 68 11/03/22 01:19 Resp 16 11/03/22 01:19 BP 113/76 11/03/22 01:19 Pulse Ox 97 11/03/22 01:19 O2 Del Method 11/03/22 01:19 O2 Flow Rate 2 11/02/22 22:28 Oxygen Flow Rate 2 11/02/22 20:53 BMI result Body Mass Index 21.9 Appearance: Alert. Oriented X3. No acute distress. Eyes: PERRLA, No Nystagmus ENT: Pharynx normal. Oral Mucosa moist Neck: Normal inspection. Neck supple. CVS: Normal heart rate and rhythm. Pulses normal. Respiratory: No respiratory distress. Equal air entry bilateral, no wheezing/rales/rhonchi Abdomen: Soft and nontender. Bowel sounds are present, no mass palpable, no CVA tenderness Skin: Skin warm and dry. Normal skin color. Normal skin turgor. Extremities: No lower extremity edema. No calf tendernes psych: Denies any SI HI Neuro: Oriented X 3. No motor deficit. No sensory deficit.No cerebellar signs , cranial nerves II-XII intact Course Reevaluation(s) Reevaluation #1: Patient was trying to tie blood pressure tubing on his neck which was removed told nurse that he is suicidal does not want to go home will get crisis evaluation Time: 00:20 Medications Administered Discontinued Medications Generic Name Dose Route Start Last Admin Trade Name Freq PRN Reason Stop Dose Admin Sodium Chloride 1,000 mls @ 999 mls/hr 11/02/22 21:04 11/03/22 00:41 Ns IV 11/02/22 22:04 Infused .Q1H1M ONE Infusion Ondansetron HCl 4 mg 11/02/22 21:04 11/02/22 21:09 Ondansetron Hcl 4 Mg/2 Ml Vial IVPUSH 11/02/22 21:05 4 mg ONCE ONE Administration Medical Decision Making Medical Decision Making [facility] Narrative: At the time of discharge patient says he can not go home later on was found strangling his neck with blood pressure cord says he is suicidal now. Will get crisis evaluation Lab Data MDM Lab Attestation statement: I reviewed the patient's lab results. Result Diagrams: 11/03/22 00:32 11/03/22 00:32 Labs: Lab Results 11/03/22 11/03/22 11/03/22 Range/Units 00:32 00:32 00:32 WBC 9.6 (4.8-10.8) X10*3/uL RBC 4.59 L (4.60-5.80) X10*6/uL Hgb 14.2 (14.0-18.0) g/dl Hct 41.5 L (42.0-52.0) % MCV 90.4 (80.0-98.0) fL MCH 30.9 (27.0-33.0) pg MCHC 34.2 (31.0-36.0) g/dl RDW 12.3 (11.0-16.0) % Plt Count 116 L D (160-400) X10*3/uL MPV 10.4 (9.4-12.4) fL Immature Gran % (Auto) 0.2 (0.0-0.4) % Neut % (Auto) 88.1 H (45-73) % Lymph % (Auto) 8.9 L (20-40) % Stephenson % (Auto) 2.5 (2-11) % Eos % (Auto) 0.1 (0-4) % Baso % (Auto) 0.2 (0-2) % Lymph # (Auto) 0.9 L (1.2-4.9) X10*3/uL Stephenson # (Auto) 0.2 (0.1-1.2) X10*3/uL Eos # (Auto) 0.0 (0.0-0.4) X10*3/uL Baso # (Auto) 0.0 (0.0-0.2) X10*3/uL Abs Immat Gran (auto) 0.02 (0.00-0.03) X10*3/uL Absolute Neuts (auto) 8.5 H (2.0-8.3) x10*3/uL Absolute Nucleated RBC 0.000 (0.0-0.012) X10*3/uL Nucleated RBC % (auto) 0.0 (0.0-0.2) /100WBC Sodium 139 (135-145) mmol/L Potassium 3.9 (3.3-5.1) mmol/L Chloride 106 (96-108) mmol/L Carbon Dioxide 24 (22-29) mmol/L Anion Gap 13 (12-20) BUN 9 (9-16) mg/dL Creatinine 0.81 (0.5-1.4) mg/dL Estim Creat Clear Calc 98.2 Estimated GFR > 60 Random Glucose 96 D (60-115) mg/dL Calcium 8.8 D (8.4-10.2) mg/dL Total Bilirubin 0.6 (0.0-1.0) mg/dL AST 32 D (5-37) U/L ALT 23 (0-40) U/L Alkaline Phosphatase 75 (39-117) U/L Total Protein 7.0 (6.5-8.0) g/dL Albumin 4.1 (3.5-5.0) g/dL Urine Opiates Screen POSITIVE H (Not Detect) Urine Fentanyl Screen POSITIVE H (Not Detect) Ur Barbiturates Screen Not Detected (Not Detect) Ur Phencyclidine Scrn Not Detected (Not Detect) Ur Amphetamines Screen Not Detected (Not Detect) U Benzodiazepines Scrn Not Detected (Not Detect) U Marijuana (THC) Screen Not Detected (Not Detect) COVID-19 ([facility]) (Negative) COVID-19 Clin Com 11/03/22 Range/Units 01:21 WBC (4.8-10.8) X10*3/uL RBC (4.60-5.80) X10*6/uL Hgb (14.0-18.0) g/dl Hct (42.0-52.0) % MCV (80.0-98.0) fL MCH (27.0-33.0) pg MCHC (31.0-36.0) g/dl RDW (11.0-16.0) % Plt Count (160-400) X10*3/uL MPV (9.4-12.4) fL Immature Gran % (Auto) (0.0-0.4) % Neut % (Auto) (45-73) % Lymph % (Auto) (20-40) % Stephenson % (Auto) (2-11) % Eos % (Auto) (0-4) % Baso % (Auto) (0-2) % Lymph # (Auto) (1.2-4.9) X10*3/uL Stephenson # (Auto) (0.1-1.2) X10*3/uL Eos # (Auto) (0.0-0.4) X10*3/uL Baso # (Auto) (0.0-0.2) X10*3/uL Abs Immat Gran (auto) (0.00-0.03) X10*3/uL Absolute Neuts (auto) (2.0-8.3) x10*3/uL Absolute Nucleated RBC (0.0-0.012) X10*3/uL Nucleated RBC % (auto) (0.0-0.2) /100WBC Sodium (135-145) mmol/L Potassium (3.3-5.1) mmol/L Chloride (96-108) mmol/L Carbon Dioxide (22-29) mmol/L Anion Gap (12-20) BUN (9-16) mg/dL Creatinine (0.5-1.4) mg/dL Estim Creat Clear Calc Estimated GFR Random Glucose (60-115) mg/dL Calcium (8.4-10.2) mg/dL Total Bilirubin (0.0-1.0) mg/dL AST (5-37) U/L ALT (0-40) U/L Alkaline Phosphatase (39-117) U/L Total Protein (6.5-8.0) g/dL Albumin (3.5-5.0) g/dL Urine Opiates Screen (Not Detect) Urine Fentanyl Screen (Not Detect) Ur Barbiturates Screen (Not Detect) Ur Phencyclidine Scrn (Not Detect) Ur Amphetamines Screen (Not Detect) U Benzodiazepines Scrn (Not Detect) U Marijuana (THC) Screen (Not Detect) COVID-19 ([place]) Negative (Negative) COVID-19 Clin Com See Note Discharge Plan Discharge Clinical Impression: Heroin abuse, Depression with suicidal ideation Patient Disposition: Still a Patient Prescriptions: No Action No Known Home Meds Interventions: Shannon-Suicide Risk Severity Scale Last Done: 11/02/22 22:33
--- NOTE | 2022-11-02 21:15 | PC.NURSE ---
Pt sitting upright and began to vomit in his emesis bag. RN hung NS !L and zofran 4 mg IV per Dec. Vomiting starting to subside.
[2022-11-02 22:28] VITALS: BP 132/83; PULSE 67; RESP 15; TEMP 36.6; O2SAT 100
[2022-11-03 00:13] VITALS: BP 121/75; PULSE 66; RESP 15; O2SAT 100
[2022-11-03 00:39] LABS: MANUAL DIFF FLAG NO
[2022-11-03 00:46] LABS: Basophils Percent Auto 0.2 % (0-2); Eosinophils Percent Auto 0.1 % (0-4); Hematocrit 41.5 % (42.0-52.0); Hemoglobin 14.2 g/dl (14.0-18.0); Imm Gran Abs Auto 0.02 X10*3/uL (0.00-0.03); Imm Gran Pct Auto 0.2 % (0.0-0.4); Lymphocytes Absolute Auto 0.9 X10*3/uL (1.2-4.9); Lymphocytes Percent Auto 8.9 % (20-40); Mean Corpuscular HGB Conc 34.2 g/dl (31.0-36.0); Mean Corpuscular Hemoglobin 30.9 pg (27.0-33.0); Mean Corpuscular Volume 90.4 fL (80.0-98.0); Mean Platelet Volume 10.4 fL (9.4-12.4); Monocytes Absolute Auto 0.2 X10*3/uL (0.1-1.2); Monocytes Percent Auto 2.5 % (2-11); Neutrophils Absolute Auto 8.5 x10*3/uL (2.0-8.3); Neutrophils Percent Auto 88.1 % (45-73); Platelet Count 116 X10*3/uL (160-400); Red Blood Count 4.59 X10*6/uL (4.60-5.80); Red Cell Distribution Width 12.3 % (11.0-16.0); White Blood Count 9.6 X10*3/uL (4.8-10.8)
[2022-11-03 00:52] LABS: Fentanyl, urine POSITIVE (Not Detect)
[2022-11-03 00:55] LABS: Amphetamine Screen Urine Not Detected (Not Detect); Barbiturates, Urine Not Detected (Not Detect); Benzodiazepines Screen Urine Not Detected (Not Detect); Cannabinoid Screen Urine Not Detected (Not Detect); Opiate Screen Urine POSITIVE (Not Detect); Phencyclidine Screen Urine Not Detected (Not Detect)
[2022-11-03 01:03] LABS: Alanine Aminotransferase 23 U/L (0-40); Albumin Level 4.1 g/dL (3.5-5.0); Alkaline Phosphatase 75 U/L (39-117); Anion Gap 13 (12-20); Aspartate Amino Transferase 32 U/L (5-37); Bilirubin Total 0.6 mg/dL (0.0-1.0); Blood Urea Nitrogen 9 mg/dL (9-16); Calcium 8.8 mg/dL (8.4-10.2); Carbon Dioxide 24 mmol/L (22-29); Chloride 106 mmol/L (96-108); Creatinine Clr Calc Pharmacy 98.2; Estimated Glomerular Filt Rate > 60; Glucose Random 96 mg/dL (60-115); Potassium 3.9 mmol/L (3.3-5.1); Sodium 139 mmol/L (135-145)
[2022-11-03 01:19] VITALS: BP 113/76; PULSE 68; RESP 16; TEMP 36.6; O2SAT 97
[2022-11-03 01:48] LABS: COVID-19 Test Negative (Negative); IDNOW Serial# 55D5AD1C
--- NOTE | 2022-11-03 02:00 | PC.NURSE ---
Assumed care of patient at 2300. Patient had been resting comfortably on stretcher while waiting for discharge by MD. This RN brought in discharge papers to patient @ approximately 00:15 as patient had been medically cleared by MD. Discharge instructions discussed, detox information papers and phone numbers provided. This RN offered patient a phone to call for ride but he stated he has nobody to call. Advised him that we would likely need to either put him in the hallway or the waiting room until he can find a ride home since the bed was needed to be used. Patient then reported to this RN that if he were to be discharged he would just leave and kill himself I will just go use another bag and commit suicide per patient. This RN informed patient that with those type of statements we will need to keep him in the hospital to be evaluated by BHN/crisis team. catshovel driver and MD immediately notified, MD then went in to speak with patient and found patient attempting to wrap blood pressure cuff cord around his neck. Security called - this RN, furnace charger, PCT, MD, and security at bedside. All cords removed from patient area. Patient then brought immediately into behavioral health pod for crisis eval and SI.
[2022-11-03 02:03] LABS: Cocaine Screen Urine POSITIVE (Not Detect)
[2022-11-03 02:26] LABS: HIV AB/AG Nonreactive (Nonreactive); HIV Num 1 0.05 S/CO (0.00-0.99)
--- NOTE | 2022-11-03 05:31 | PC.NURSE ---
Patient slept through the night, no distress observed/reported, patient is here for conditional suicidality, med rec completed/patient is currently not on any home medication, care team consult ordered, pending evaluation, VSS, will continue to monitor.
[2022-11-03 07:03] LABS: Appearance Urine Clear; Color Urine Yellow; Glucose Urine UA Negative (Negative); Leukocyte Esterase Urine Negative (Negative); Nitrite Urine Negative (Negative); PH 6.5 (5.0-9.0); Specific Gravity - Urine 1.015 (1.005-1.025); Urine Blood Negative (Negative); Urine Ketones Trace mg/dL (Negative); Urine Protein Negative (Neg-Trace)
--- NOTE | 2022-11-03 09:29 | MHC.RECOVRN ---
Addendum entered by Yuridia Bhatt RN 11/03/22 09:39: Patient currently reports bodyaches, sweaty. Patient visibly diaphoretic. Patient denies N,V,D, chills, goosebumps. Original Note: This expert medical writer met w/ patient, patient was resting, laying down, under blankets. Patient reports snorting one bag daily heroin for past 4-5 months. Patient reports 5 months ago, was in recovery and in a substanse use treatment program. Patient has history of 5 overdoses. Patient states historically, uses 1/4 bag and overdoses. Harm reduction reviewed. Patient reports had been staying at [facility], Uncle does not have narcan but has called 911 twice in the past for patients overdose. Patient interested in starting on Suboxone. Patient reports found Suboxone helpful in the past. This expert medical writer reviewed microdose induction, will discuss with provider to discuss best approach.
--- NOTE | 2022-11-03 12:08 | MHC.CARE ---
Section 12 placed in pt's chart.
--- NOTE | 2022-11-03 12:24 | MHC.CARE ---
SUDE: Pt has a hx of cocaine and heroin use.? He has recently tested positive for both substances including fentanyl.? Pt has an extensive hx of incarcerations and will most often be substance free while incarcerated but soon relapses when released from snf. ?He does not give a specific age when his substance use began but stated that he has been using substances for ?a long time.? He does not discuss substance use by family members. Pt has a hx of inpatient psychiatric treatment that began in early adulthood.? He has stated that he has no knowledge of a formal mental illness dx. Harm reduction was discussed with pt as well as risk factors for HIV, Hep C and other illness was discussed. CARE team has asked Recovery Team to meet with pt to discuss MAT and other Recovery Resources.
[2022-11-03 14:15] VITALS: RESP 17
--- NOTE | 2022-11-03 16:13 | PM.EVENT ---
Event Note Date of Service: 11/03/22 Event Note: Addiction note: Patient presented to ED with OUD, awaiting psychiatric admission. Seen by [facility] RN, patient reporting chills, and body aches. Noted by RN to be sleeping soundly, but wakes easily. Patient reported last use prior to ED admission last evening Concern for withdrawal sx developing later in the evening. Plan: -methadone 10mg q4 hours PRN for opioid withdrawal max of 2 doses Time Spent With Patient Time: Total time managing care of this patient today ____ minutes.
[2022-11-03 20:24] VITALS: BP 120/77; PULSE 61; RESP 16; TEMP 36.6; O2SAT 98
[2022-11-03] MEDS: LORazepam 1 MG TABLET 2 MG PO (23:55)
--- NOTE | 2022-11-03 23:56 | PC.NURSE ---
Patient just woke up reported generalized body ache, VSS, asymptomatic of opiates withdrawal, HR 69, provider notified/ordered ativan 2 mg po/administered as ordered/pending effect, disposition per care team is section 12 inpatient bed search, no update on bed search, behavior non concerning, will continue to monitor.
[2022-11-03 23:57] VITALS: BP 123/70; PULSE 69; RESP 16; TEMP 37; O2SAT 97
--- NOTE | 2022-11-04 | ECG_ITS ---
Test Reason : MED CLEARANCE Blood Pressure : / mmHG Vent. Rate : 063 BPM Atrial Rate : 063 BPM P-R Int : 146 ms QRS Dur : 094 ms QT Int : 408 ms P-R-T Axes : 050 073 048 degrees QTc Int : 417 ms Normal sinus rhythm Normal ECG When compared with ECG of 17-OCT-2022 19:05, Vent. rate has decreased BY 33 BPM Referred By: Maldonado Damian Electronically Signed By:LOI BERRY
[2022-11-04 11:33] LABS: HBS Num1 > 1000.00 mIU/mL (0-7.99); HBsAGNum1 0.27 S/CO (0.00-0.99); Hepatitis B Surface Antigen Negative (Negative); ~Hepatitis B Surface Antibody REACTIVE (Nonreactive)
[2022-11-04 11:38] VITALS: BP 129/84; PULSE 64; RESP 16; TEMP 36.2; O2SAT 93
[2022-11-04] MEDS: Ibuprofen 800 MG TABLET PO (11:58)
[2022-11-04 13:58] LABS: Hepatitis C Ab Exposure Source NonReactive (Nonreactive)
[2022-11-04 14:22] LABS: HBc Num1 0.16 S/CO (0.00-0.79); Hepatitis B Core Antibody Nonreactive (Nonreactive); ~HepC Num1 0.07 S/CO (0.00-0.79)
--- NOTE | 2022-11-04 16:32 | PC.NURSE ---
nurse to nurse given to Yg TERRY on m3
[2022-11-04 17:43] VITALS: BP 124/74; PULSE 70; RESP 18; TEMP 36.6; O2SAT 97
[2022-11-04] MEDS: cloNIDine HCL 0.1 MG TABLET PO ×2 (17:54→21:30)
[2022-11-04] MEDS: Acetaminophen 325 MG TABLET 650 MG PO (17:54)
[2022-11-04] MEDS: Cyclobenzaprine HCl 10 MG TABLET PO ×2 (17:54→21:39)
[2022-11-04] MEDS: Nicotine Polacrilex 2 MG GUM 4 MG BUCCAL ×2 (17:54→22:54)
--- NOTE | 2022-11-04 18:07 | PC.NURSE ---
per security, [employer] and security would like to be notified when patient is Discharged.
--- NOTE | 2022-11-04 18:38 | PC.NURSE ---
Patient is a 47 year old male in after SI attempt in the ED. Patient originally brought into ED for being unresponsive, was given narcan in the field. When patient was about to be discharged he stated that he would just kill himself and tied the BP cuff around his neck. Patient has no known Psych diagnosis at this time. No longstanding medication history, per crisis evmichael has spent a significant portion of his life in residential. He is on a CV and 5 min checks with an unlocked bathroom. He is pleasant, cooperative, and alert and oriented x4. Denies visual hallucinations, and has made some vague remarks in regard to auditory hallucinations. He does not appear internally pre-occupied. Thought process is linear. No recent weight loss. Appetite is good. He states he is a very light sleeper, can get to bed fine but wakes up easily. Long standing history of drug use. Potential for drug withdrawal, but denies upon admission to the unit. Offers a medical complaint of chronic back pain.
[2022-11-04 21:30] VITALS: BP 126/80; PULSE 81; RESP 18; TEMP 37.6; O2SAT 95
[2022-11-04] MEDS: Ibuprofen 600 MG TABLET PO (21:31)
[2022-11-04] MEDS: traZODone HCL 50 MG TABLET PO (21:39)
[2022-11-04] MEDS: methADONE HCl 20 MG/2 ML ORAL.CONC 10 MG PO ×2 (22:09→23:11)
[2022-11-05 08:23] LABS: Cholesterol 202 mg/dL; HDL Cholesterol 56 mg/dL; LDL Cholesterol Calculated 124 mg/dl; Triglycerides 114 mg/dL
[2022-11-05 08:43] LABS: Estimated Average Glucose 108 mg/dL; Hemoglobin A1c % 5.4 %
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
[2022-11-05 08:55] LABS: Free T4 (Free Thyroxine) 0.98 ng/dL (0.71-1.85)
[2022-11-05 09:20] VITALS: BP 107/62; PULSE 69; RESP 18; TEMP 36.6; O2SAT 98
[2022-11-05] MEDS: Thiamine HCL 100 MG TABLET PO (09:42)
[2022-11-05] MEDS: Folic Acid 1 MG TABLET PO (09:42)
[2022-11-05] MEDS: Cyclobenzaprine HCl 10 MG TABLET PO ×2 (09:43→20:37)
[2022-11-05] MEDS: Multivitamin TABLET 1 TAB PO (10:16)
[2022-11-05] MEDS: Nicotine Polacrilex 2 MG GUM 4 MG BUCCAL ×3 (13:35→19:20)
[2022-11-05] MEDS: Gabapentin 100 MG CAPSULE 200 MG PO ×2 (14:43→20:37)
[2022-11-05] MEDS: buPROPion HCl XL 150 MG TAB.ER.24H PO (14:43)
[2022-11-05 15:23] VITALS: BP 118/69; PULSE 71; RESP 18; O2SAT 99
[2022-11-05] MEDS: cloNIDine HCL 0.1 MG TABLET PO ×2 (15:25→20:37)
[2022-11-05 20:30] VITALS: BP 108/66; PULSE 76; RESP 18; TEMP 36.7; O2SAT 98
[2022-11-05] MEDS: Ibuprofen 600 MG TABLET PO (20:37)
[2022-11-05] MEDS: traZODone HCL 50 MG TABLET PO (20:37)
[2022-11-05] MEDS: Mirtazapine 15 MG TABLET PO (20:37)
[2022-11-06 09:00] VITALS: BP 105/56; PULSE 74; RESP 20; TEMP 36.4; O2SAT 97
[2022-11-06] MEDS: Cyclobenzaprine HCl 10 MG TABLET PO ×2 (09:21→15:51)
[2022-11-06] MEDS: Gabapentin 100 MG CAPSULE 200 MG PO ×2 (09:21→14:33)
[2022-11-06] MEDS: Thiamine HCL 100 MG TABLET PO (09:22)
[2022-11-06] MEDS: Folic Acid 1 MG TABLET PO (09:22)
[2022-11-06] MEDS: buPROPion HCl XL 150 MG TAB.ER.24H PO (09:23)
[2022-11-06] MEDS: Multivitamin TABLET 1 TAB PO (09:31)
--- NOTE | 2022-11-06 11:25 | P.PNPSI_ITS ---
Subjective Subjective Date of Service: 11/06/22 Reason For Visit: SI Subjective Notes: Conditional Voluntary Interim History: Pt reports sleeping better. He reports less depressed, less overwhelmed. No SI/HI. no VH/AH. He reports chronic back pain, some relief but minimal with flexeril and gabapentin, will increase dose as well as dose of ibuprofen. No behavioral concerns. wants to start suboxone, no withdrawal symptoms yet. will meet with addiction medicine tomorrow to restart suboxone. Medication Compliance: Yes Side effects from medications: No Attending Groups: Intermittent Review of Systems Review of Systems General: No fevers, malaise, unintentional weight loss HEENT: +ear pain, +blood from ears. No blurred vision, diplopia. No sore throat, nasal congestion, rhinorrhea, sinus pain Cardiovascular: No chest pain, palpitations, or leg edema Respiratory: No shortness of breath, wheezing, cough GI: No abdominal pain, nausea, vomiting, diarrhea, constipation, melena, hematochezia : No dysuria, hematuria, increased urinary frequency, decreased urinary output MSK: +back pain. No myalgia Neuro: No headaches, weakness, paresthesias Skin: No lesions. +diffuse skin rash Yes all other systems are reviewed and are negative Mental Status Exam Mental Status Exam Narrative: Appearance: casually groomed, fair hygiene in NAD Behavior: cooperative Psychomotor: no agitation or retardation noted Speech: clear, normal rate/rhythm/volume, spontaneous TP: linear TC: no s/s of psychosis, wanting to get help for both substance use and psych. Mood: depressed Affect: brightens at times, somewhat anxious SI: passive at this point HI: none AH/VH: none Delusions: none Insight/judgment: fair x 2. Memory/cog: alert, oriented x 3. grossly intact to conversational testing. Diagnostics Vital Signs (24Hr): Vital Signs - 24 hr 11/06/22 09:00 11/06/22 15:05 11/06/22 15:05 Temperature 97.6 F Pulse Rate 74 96 100 Respiratory Rate 20 18 18 Blood Pressure 105/56 L 121/74 116/74 Pulse Oximetry 97 97 97 Oxygen Delivery Method Room Air Room Air Room Air 11/06/22 21:30 Temperature 98 F Pulse Rate 72 Respiratory Rate 16 Blood Pressure 118/80 Pulse Oximetry 98 Oxygen Delivery Method Room Air BMI result Body Mass Index 21.9 Labs 11/03/22 00:32 11/03/22 00:32 Labs: Laboratory Results - last 48 hr 11/05/22 11/05/22 08:04 08:04 Estimat Average Glucose 108 Hemoglobin A1c % 5.4 Triglycerides 114 Cholesterol 202 LDL Cholesterol, Calc 124 HDL Cholesterol 56 Free T4 0.98 Medications Medications Current Medications Acetaminophen (Acetaminophen 325 Mg Tablet) 650 mg PO Q6H PRN PRN Reason: Headache/Pain Mild Scale (1-3) Last Admin: 11/04/22 17:54 Dose: 650 mg Al Hydroxide/Mg Hydroxide (Magnesium Hydrox/Alum Hydrox 30 Ml Oral.Susp) 30 ml PO Q6H PRN PRN Reason: Heartburn/Nausea Bupropion HCl (Bupropion Hcl Xl 150 Mg Tab.Er.24h) 150 mg PO DAILY [facility] Last Admin: 11/06/22 09:23 Dose: 150 mg Clonidine HCl (Clonidine Hcl 0.1 Mg Tablet) 0.1 mg PO Q4H PRN; Protocol PRN Reason: anxiety/opiate w/drawal Last Admin: 11/05/22 15:25 Dose: 0.1 mg Clonidine HCl (Clonidine Hcl 0.1 Mg Tablet) 0.1 mg PO BEDTIME [facility]; Protocol Last Admin: 11/06/22 20:58 Dose: 0.1 mg Cyclobenzaprine HCl (Cyclobenzaprine Hcl 10 Mg Tablet) 10 mg PO TID PRN PRN Reason: muscle cramps Last Admin: 11/06/22 15:51 Dose: 10 mg Dicyclomine HCl (Dicyclomine Hcl 10 Mg Capsule) 10 mg PO Q4H PRN PRN Reason: stomach cramps Folic Acid (Folic Acid 1 Mg Tablet) 1 mg PO DAILY [facility] Last Admin: 11/06/22 09:22 Dose: 1 mg Gabapentin (Gabapentin 300 Mg Capsule) 300 mg PO TID [facility] Last Admin: 11/06/22 20:58 Dose: 300 mg Hydroxyzine HCl (Hydroxyzine Hcl 50 Mg Tablet) 50 mg PO Q6H PRN PRN Reason: Anxiety Ibuprofen (Ibuprofen 800 Mg Tablet) 800 mg PO Q6H PRN PRN Reason: Pain, Moderate (Pain Scale 4-6 Loperamide HCl (Loperamide Hcl 2 Mg Capsule) 2 mg PO Q6H PRN PRN Reason: loose stool Magnesium Hydroxide (Milk Of Magnesia 30 Ml Oral.Susp) 30 ml PO DAILY PRN PRN Reason: Constipation Mirtazapine (Mirtazapine 15 Mg Tablet) 15 mg PO BEDTIME [facility] Last Admin: 11/06/22 20:58 Dose: 15 mg Multivitamins/Vitamin C (Multivitamin Tablet) 1 tab PO DAILY [facility] Last Admin: 11/06/22 09:31 Dose: 1 tab Neomycin/Polymyxin/Hydrocortisone (Neomycin/Polymyxin/Hc Otic Terese Bottle) 4 dio p EAR-BOTH TID [facility] Stop: 11/13/22 09:01 Last Admin: 11/06/22 21:00 Dose: 4 drop Nicotine Polacrilex (Nicotine Polacrilex 2 Mg Gum) 4 mg BUCCAL Q2H PRN PRN Reason: Nicotine Cravings Last Admin: 11/06/22 19:38 Dose: 4 mg Olanzapine (Olanzapine 5 Mg Tablet) 5 mg PO TID PRN PRN Reason: agitation Thiamine HCl (Thiamine Hcl 100 Mg Tablet) 100 mg PO DAILY [facility] Last Admin: 11/06/22 09:22 Dose: 100 mg Trazodone HCl (Trazodone Hcl 50 Mg Tablet) 50 mg PO BEDTIME PRN PRN Reason: Insomnia Last Admin: 11/06/22 20:58 Dose: 50 mg Allergies Allergies Allergy/AdvReac Type Severity Reaction Status Date / Time No Known Allergies Allergy Verified 03/23/22 11:25 [No Known Allergies*] Assessment & Plan Assessment & Plan (1) Otitis externa: Status: Acute Code(s): H60.90 - Unspecified otitis externa, unspecified ear Plan 11/06 increase ibuprofen to 800mg po q6h, increase gabapentin to 300mg po TID. Pt to be seen by addiction medicine tomorrow to start suboxone. Patient educated on: diagnosis, medication risk/benefits and substance abuse Reason for contiued inpatient stay Substantial Risk for: inability to function Time Spent With Patient Time: Total time managing care of this patient today ____ minutes.
[2022-11-06] MEDS: Nicotine Polacrilex 2 MG GUM 4 MG BUCCAL ×3 (11:30→19:38)
[2022-11-06] MEDS: Ibuprofen 600 MG TABLET PO (11:30)
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
[2022-11-06 15:05] VITALS: BP 116/74; BP 121/74; PULSE 100; PULSE 96; RESP 18; O2SAT 97
--- NOTE | 2022-11-06 15:08 | PC.NURSE ---
Patient reporting significant lower back pain- chronic- only briefly reduced w/ flexeril and ibuprofen. He also reports dizziness. Ortho VS taken, pain and dizziness all reviewed w/ provider.
[2022-11-06] MEDS: NeoMYCIN/Polymyxin/HC Otic Sol BOTTLE 4 DROP EAR-BOTH ×2 (15:38→21:00)
[2022-11-06] MEDS: Ketoconazole 2 % Shampoo 120 ML BTL 1 APPL TOPICAL (17:47)
[2022-11-06] MEDS: Mirtazapine 15 MG TABLET PO (20:58)
[2022-11-06] MEDS: traZODone HCL 50 MG TABLET PO (20:58)
[2022-11-06] MEDS: cloNIDine HCL 0.1 MG TABLET PO (20:58)
[2022-11-06] MEDS: Gabapentin 300 MG CAPSULE PO (20:58)
[2022-11-06 21:30] VITALS: BP 118/80; PULSE 72; RESP 16; TEMP 36.6; O2SAT 98
[2022-11-07 08:00] VITALS: PULSE 76
[2022-11-07] MEDS: Thiamine HCL 100 MG TABLET PO (09:20)
[2022-11-07] MEDS: Folic Acid 1 MG TABLET PO (09:21)
[2022-11-07] MEDS: Gabapentin 300 MG CAPSULE PO ×3 (09:21→20:28)
[2022-11-07] MEDS: NeoMYCIN/Polymyxin/HC Otic Sol BOTTLE 4 DROP EAR-BOTH ×2 (09:21→15:58)
[2022-11-07] MEDS: Multivitamin TABLET 1 TAB PO (09:21)
[2022-11-07] MEDS: buPROPion HCl XL 150 MG TAB.ER.24H PO (09:21)
[2022-11-07] MEDS: Cyclobenzaprine HCl 10 MG TABLET PO ×3 (09:30→21:29)
[2022-11-07 09:31] VITALS: BP 107/66; PULSE 76; RESP 18; TEMP 36.8; O2SAT 97
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
[2022-11-07] MEDS: Nicotine Polacrilex 2 MG GUM 4 MG BUCCAL (12:36)
--- NOTE | 2022-11-07 14:28 | HO.ADDICTCON ---
History of Present Illness Date of Service: 11/07/2022 Chief Complaint: SI Reason for Consult: Suboxoen re-start Requesting physician: Ashanti Garay Sources of Information: patient interviewed and chart reviewed Additional Sources of Information: Recovery Support RN note HPI Narrative: Patient is a 47 year old male currently admitted to unit for depression with suicidal ideation. Seen by Recovery support RN X2 during this admission --once while in ED awaiting admission and earlier this morning, prior to being seen by this leader writer. Patient reports using approx one bag of heroin daily. He also reports having 2 overdoses requiring narcan--which have impacted his housing as he had been staying with his uncle and is now unable to return. Patient received methadone 10mg X2 for withdrawal sx on 11/04. He reports this helped with his sx which were mainly body aches and chills. Today he denies any withdrawal sx and appears comfortable. He would like to restart suboxone to ensure he does not resuem opioid use once discharged. He was prescribed suboxone via [facility] in February--16mg daily, however patient reports only taking 8mg daily. Past Psychiatric History: inpt: M5 2014 OP: none now Past trials: wellbutrin, clonidine, seroquel (too sedating), suboxone. Review of Systems Constitutional: Reports as per HPI and Reports no additional constitutional complaints Diagnostics Vital Signs (24Hr): Vital Signs - 24 hr 11/06/22 15:05 11/06/22 15:05 11/06/22 21:30 Temperature 98 F Pulse Rate 96 100 72 Respiratory Rate 18 18 16 Blood Pressure 121/74 116/74 118/80 Pulse Oximetry 97 97 98 Oxygen Delivery Method Room Air Room Air Room Air 11/07/22 09:31 Temperature 98.2 F Pulse Rate 76 Respiratory Rate 18 Blood Pressure 107/66 Pulse Oximetry 97 Oxygen Delivery Method Room Air BMI result Body Mass Index 21.9 Labs 11/03/22 00:32 11/03/22 00:32 Mental Status Exam Mental Status Exam Patient Appearance: Appropriate Patient Orientation: Person, Place, Time and Situation Level of Consciousness: Awake, Appropriate and Alert Patient Behavior: Appropriate and Cooperative Mood Description: Calm Affect Description: Calm Thought Process: Intact and Goal Oriented Medications Medications Current Medications Acetaminophen (Acetaminophen 325 Mg Tablet) 650 mg PO Q6H PRN PRN Reason: Headache/Pain Mild Scale (1-3) Last Admin: 11/04/22 17:54 Dose: 650 mg Al Hydroxide/Mg Hydroxide (Magnesium Hydrox/Alum Hydrox 30 Ml Oral.Susp) 30 ml PO Q6H PRN PRN Reason: Heartburn/Nausea Bupropion HCl (Bupropion Hcl Xl 150 Mg Tab.Er.24h) 150 mg PO DAILY [facility] Last Admin: 11/07/22 09:21 Dose: 150 mg Clonidine HCl (Clonidine Hcl 0.1 Mg Tablet) 0.1 mg PO Q4H PRN; Protocol PRN Reason: anxiety/opiate w/drawal Last Admin: 11/05/22 15:25 Dose: 0.1 mg Clonidine HCl (Clonidine Hcl 0.2 Mg Tablet) 0.2 mg PO BEDTIME [facility]; Protocol Cyclobenzaprine HCl (Cyclobenzaprine Hcl 10 Mg Tablet) 10 mg PO TID PRN PRN Reason: muscle cramps Last Admin: 11/07/22 09:30 Dose: 10 mg Dicyclomine HCl (Dicyclomine Hcl 10 Mg Capsule) 10 mg PO Q4H PRN PRN Reason: stomach cramps Folic Acid (Folic Acid 1 Mg Tablet) 1 mg PO DAILY [facility] Last Admin: 11/07/22 09:21 Dose: 1 mg Gabapentin (Gabapentin 300 Mg Capsule) 300 mg PO TID [facility] Last Admin: 11/07/22 09:21 Dose: 300 mg Hydroxyzine HCl (Hydroxyzine Hcl 50 Mg Tablet) 50 mg PO Q6H PRN PRN Reason: Anxiety Ibuprofen (Ibuprofen 800 Mg Tablet) 800 mg PO Q6H PRN PRN Reason: Pain, Moderate (Pain Scale 4-6 Loperamide HCl (Loperamide Hcl 2 Mg Capsule) 2 mg PO Q6H PRN PRN Reason: loose stool Magnesium Hydroxide (Milk Of Magnesia 30 Ml Oral.Susp) 30 ml PO DAILY PRN PRN Reason: Constipation Mirtazapine (Mirtazapine 15 Mg Tablet) 15 mg PO BEDTIME [facility] Last Admin: 11/06/22 20:58 Dose: 15 mg Mirtazapine (Mirtazapine 15 Mg Tablet) 15 mg PO BEDTIME PRN PRN Reason: insomnia Multivitamins/Vitamin C (Multivitamin Tablet) 1 tab PO DAILY [facility] Last Admin: 11/07/22 09:21 Dose: 1 tab Neomycin/Polymyxin/Hydrocortisone (Neomycin/Polymyxin/Hc Otic Terese Bottle) 4 drop EAR-BOTH TID [facility] Stop: 11/13/22 09:01 Last Admin: 11/07/22 09:21 Dose: 4 drop Nicotine Polacrilex (Nicotine Polacrilex 2 Mg Gum) 4 mg BUCCAL Q2H PRN PRN Reason: Nicotine Cravings Last Admin: 11/07/22 12:36 Dose: 4 mg Olanzapine (Olanzapine 5 Mg Tablet) 5 mg PO TID PRN PRN Reason: agitation Thiamine HCl (Thiamine Hcl 100 Mg Tablet) 100 mg PO DAILY [facility] Last Admin: 11/07/22 09:20 Dose: 100 mg Allergies Allergies Allergy/AdvReac Type Severity Reaction Status Date / Time No Known Allergies Allergy Verified 03/23/22 11:25 [No Known Allergies*] Assessment & Plan Assessment & Plan (1) Opioid use disorder: Status: Acute Code(s): F11.90 - Opioid use, unspecified, uncomplicated Assessment and Plan: will restart suboxone 2mg QD for now and titrate if necessary. Patient aware that this will be the starting dose and he is agreeable. Total time managing care of this patient today _35___ minutes. [facility] Past Medical History Medical History (Updated 11/06/22 @ 14:08 by SHANNON Yusuf) Chronic low back pain Substance abuse Traumatic brain injury with loss of consciousness Social History Social History Alcohol intake: former Patient Tobacco Use Status: Tobacco use Unknown Smoked in Last 30 Days: Yes Use of substances other than those prescribed or required for medical reasons: Yes Substance Use Type: Heroin Substance Use Frequency: Chronic Longstanding Currently Displaying Signs/Symptoms of Drug Intoxication Withdrawal: No Advance Directives: No Healthcare Proxy: No Guardian: No Do you have thoughts of harming others: None Do you have a plan to hurt others: No Plan Recently lost weight without trying: No
[2022-11-07] MEDS: Ibuprofen 800 MG TABLET PO (15:28)
[2022-11-07 16:15] VITALS: BP 116/66; PULSE 86; RESP 6; TEMP 36.3; O2SAT 98
--- NOTE | 2022-11-07 18:04 | P.PNPSI_ITS ---
Subjective Subjective Date of Service: 11/07/22 Reason For Visit: SI Interim History: calm, cooperative. agreeable to increase clonidine and add PRN remeron in addition to scheduled. seen by addiction service and started on suboxone today. per staff, tried to tie BP cuff around neck in ED. vague re AH. 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 sexually inappropriate comment toward female staff x1. slept well overnight. Mental Status Exam Mental Status Exam Narrative: Appearance: casually groomed, fair hygiene in NAD Behavior: cooperative Psychomotor: no agitation or retardation noted Speech: clear, normal rate/rhythm/volume, spontaneous TP: linear TC: no s/s of psychosis, wanting to get help for both substance use and psych. Mood: depressed Affect: brightens at times, somewhat anxious SI: passive at this point HI: none AH/VH: none Delusions: none Insight/judgment: fair x 2. Memory/cog: alert, oriented x 3. grossly intact to conversational testing. Diagnostics Vital Signs (24Hr): Vital Signs - 24 hr 11/06/22 21:30 11/07/22 09:31 11/07/22 16:15 Temperature 98 F 98.2 F 97.4 F Pulse Rate 72 76 86 Respiratory Rate 16 18 6 L Blood Pressure 118/80 107/66 116/66 Pulse Oximetry 98 97 98 Oxygen Delivery Method Room Air Room Air Room Air BMI result Body Mass Index 21.9 Labs 11/03/22 00:32 11/03/22 00:32 Medications Medications Current Medications Acetaminophen (Acetaminophen 325 Mg Tablet) 650 mg PO Q6H PRN PRN Reason: Headache/Pain Mild Scale (1-3) Last Admin: 11/04/22 17:54 Dose: 650 mg Al Hydroxide/Mg Hydroxide (Magnesium Hydrox/Alum Hydrox 30 Ml Oral.Susp) 30 ml PO Q6H PRN PRN Reason: Heartburn/Nausea Buprenorphine/Naloxone (Buprenorphine/Naloxone 2/0.5mg Film) 1 film SUBLINGUAL DAILY [facility] Bupropion HCl (Bupropion Hcl Xl 150 Mg Tab.Er.24h) 150 mg PO DAILY [facility] Last Admin: 11/07/22 09:21 Dose: 150 mg Clonidine HCl (Clonidine Hcl 0.1 Mg Tablet) 0.1 mg PO Q4H PRN; Protocol PRN Reason: anxiety/opiate w/drawal Last Admin: 11/05/22 15:25 Dose: 0.1 mg Clonidine HCl (Clonidine Hcl 0.2 Mg Tablet) 0.2 mg PO BEDTIME [facility]; Protocol Cyclobenzaprine HCl (Cyclobenzaprine Hcl 10 Mg Tablet) 10 mg PO TID PRN PRN Reason: muscle cramps Last Admin: 11/07/22 15:29 Dose: 10 mg Dicyclomine HCl (Dicyclomine Hcl 10 Mg Capsule) 10 mg PO Q4H PRN PRN Reason: stomach cramps Folic Acid (Folic Acid 1 Mg Tablet) 1 mg PO DAILY [facility] Last Admin: 11/07/22 09:21 Dose: 1 mg Gabapentin (Gabapentin 300 Mg Capsule) 300 mg PO TID [facility] Last Admin: 11/07/22 15:47 Dose: 300 mg Hydroxyzine HCl (Hydroxyzine Hcl 50 Mg Tablet) 50 mg PO Q6H PRN PRN Reason: Anxiety Ibuprofen (Ibuprofen 800 Mg Tablet) 800 mg PO Q6H PRN PRN Reason: Pain, Moderate (Pain Scale 4-6 Last Admin: 11/07/22 15:28 Dose: 800 mg Loperamide HCl (Loperamide Hcl 2 Mg Capsule) 2 mg PO Q6H PRN PRN Reason: loose stool Magnesium Hydroxide (Milk Of Magnesia 30 Ml Oral.Susp) 30 ml PO DAILY PRN PRN Reason: Constipation Mirtazapine (Mirtazapine 15 Mg Tablet) 15 mg PO BEDTIME [facility] Last Admin: 11/06/22 20:58 Dose: 15 mg Mirtazapine (Mirtazapine 15 Mg Tablet) 15 mg PO BEDTIME PRN PRN Reason: insomnia Multivitamins/Vitamin C (Multivitamin Tablet) 1 tab PO DAILY [facility] Last Admin: 11/07/22 09:21 Dose: 1 tab Neomycin/Polymyxin/Hydrocortisone (Neomycin/Polymyxin/Hc Otic Terese Bottle) 4 drop EAR-BOTH TID [facility] Stop: 11/13/22 09:01 Last Admin: 11/07/22 15:58 Dose: 4 drop Nicotine Polacrilex (Nicotine Polacrilex 2 Mg Gum) 4 mg BUCCAL Q2H PRN PRN Reason: Nicotine Cravings Last Admin: 11/07/22 12:36 Dose: 4 mg Olanzapine (Olanzapine 5 Mg Tablet) 5 mg PO TID PRN PRN Reason: agitation Thiamine HCl (Thiamine Hcl 100 Mg Tablet) 100 mg PO DAILY [facility] Last Admin: 11/07/22 09:20 Dose: 100 mg Allergies Allergies Allergy/AdvReac Type Severity Reaction Status Date / Time No Known Allergies Allergy Verified 03/23/22 11:25 [No Known Allergies*] Assessment & Plan Assessment & Plan (1) Opioid use disorder: Status: Acute Code(s): F11.90 - Opioid use, unspecified, uncomplicated Assessment and Plan: * will restart suboxone 2mg QD for now and titrate if necessary. Patient aware that this will be the starting dose and he is agreeable. (2) Cocaine use disorder, moderate, dependence: Status: Acute Code(s): F14.20 - Cocaine dependence, uncomplicated (3) MDD (major depressive disorder), recurrent episode, moderate: Status: Acute Code(s): F33.1 - Major depressive disorder, recurrent, moderate Plan 11/06 increase ibuprofen to 800mg po q6h, increase gabapentin to 300mg po TID. Pt to be seen by addiction medicine tomorrow to start suboxone. 11/07: started suboxone 2 mg daily. increased clonidine to 0.2 mg QHS. increase gabapentin once pt feeling less sedated. Reason for contiued inpatient stay Substantial Risk for: harm to self, inability to function and med/psych decompensation Time Spent With Patient Time: Total time managing care of this patient today __25__ minutes.
[2022-11-07 19:45] VITALS: BP 113/63; PULSE 91; RESP 16; TEMP 36.6; O2SAT 98
[2022-11-07] MEDS: Buprenorphine/Naloxone 2/0.5mg FILM 1 FILM SUBLINGUAL (20:28)
[2022-11-07] MEDS: Mirtazapine 15 MG TABLET PO (20:28)
[2022-11-07] MEDS: cloNIDine HCL 0.2 MG TABLET PO (20:28)
[2022-11-08] MEDS: hydrOXYzine HCL 50 MG TABLET PO (00:03)
[2022-11-08] MEDS: Mirtazapine 15 MG TABLET PO ×2 (00:03→20:12)
[2022-11-08] MEDS: Ibuprofen 800 MG TABLET PO (00:03)
[2022-11-08] MEDS: cloNIDine HCL 0.1 MG TABLET PO (03:57)
[2022-11-08] MEDS: Cyclobenzaprine HCl 10 MG TABLET PO ×3 (03:57→20:12)
[2022-11-08 08:00] VITALS: PULSE 80
[2022-11-08 08:42] VITALS: BP 109/65; PULSE 80; TEMP 36.1; O2SAT 98
[2022-11-08] MEDS: Gabapentin 300 MG CAPSULE PO (08:52)
[2022-11-08] MEDS: Buprenorphine/Naloxone 2/0.5mg FILM 1 FILM SUBLINGUAL ×2 (08:52→18:24)
[2022-11-08] MEDS: buPROPion HCl XL 150 MG TAB.ER.24H PO (08:53)
[2022-11-08] MEDS: Thiamine HCL 100 MG TABLET PO (08:53)
[2022-11-08] MEDS: Folic Acid 1 MG TABLET PO (08:53)
[2022-11-08] MEDS: Multivitamin TABLET 1 TAB PO (08:53)
[2022-11-08] MEDS: NeoMYCIN/Polymyxin/HC Otic Sol BOTTLE 4 DROP EAR-BOTH ×2 (08:59→16:25)
[2022-11-08] MEDS: Nicotine Polacrilex 2 MG GUM 4 MG BUCCAL ×4 (09:39→18:56)
--- NOTE | 2022-11-08 13:01 | PC.NURSE ---
pt stated he was a smoker, nicotine gum ordered
[2022-11-08] MEDS: Gabapentin 300 MG CAPSULE 600 MG PO ×2 (14:07→20:12)
[2022-11-08 16:00] VITALS: PULSE 80
--- NOTE | 2022-11-08 17:07 | P.PNPSI_ITS ---
Subjective Subjective Date of Service: 11/08/22 Reason For Visit: SI Interim History: calm, cooperative. c/o poor sleep 2/2 pain. agrees to increase gabapentin to 600 TID. also asks to increase clonidine to 0.3 QHS. started on suboxone 2 mg daily, to be titrated to 4 BID, likely, per discussion with karyn padron. per staff, isolative, safe. ruminating. dep/anx 10. poor sleep 2/2 back pain. slept poorly, maybe 4 hrs. doesn't want to go to [facility]. Mental Status Exam Mental Status Exam Narrative: Appearance: casually groomed, fair hygiene in NAD Behavior: cooperative Psychomotor: no agitation or retardation noted Speech: clear, normal rate/rhythm/volume, spontaneous TP: linear TC: no s/s of psychosis, wanting to get help for both substance use and psych. Mood: not assessed Affect: brightens at times, somewhat anxious SI: none expressed HI: none AH/VH: none Delusions: none Insight/judgment: fair x 2. Memory/cog: alert, oriented x 3. grossly intact to conversational testing. Diagnostics Vital Signs (24Hr): Vital Signs - 24 hr 11/07/22 19:45 11/08/22 08:42 Temperature 97.8 F 97 F Pulse Rate 91 80 Respiratory Rate 16 Blood Pressure 113/63 109/65 Pulse Oximetry 98 98 Oxygen Delivery Method Room Air Room Air BMI result Body Mass Index 21.9 Labs 11/03/22 00:32 11/03/22 00:32 Medications Medications Current Medications Acetaminophen (Acetaminophen 325 Mg Tablet) 650 mg PO Q6H PRN PRN Reason: Headache/Pain Mild Scale (1-3) Last Admin: 11/04/22 17:54 Dose: 650 mg Al Hydroxide/Mg Hydroxide (Magnesium Hydrox/Alum Hydrox 30 Ml Oral.Susp) 30 ml PO Q6H PRN PRN Reason: Heartburn/Nausea Buprenorphine/Naloxone (Buprenorphine/Naloxone 2/0.5mg Film) 1 film SUBLINGUAL ONCE ONE Stop: 11/08/22 18:01 Buprenorphine/Naloxone (Buprenorphine/Naloxone 4/1 Mg Film) 1 film SUBLINGUAL DAILY [facility] Bupropion HCl (Bupropion Hcl Xl 150 Mg Tab.Er.24h) 150 mg PO DAILY [facility] Last Admin: 11/08/22 08:53 Dose: 150 mg Clonidine HCl (Clonidine Hcl 0.1 Mg Tablet) 0.1 mg PO Q4H PRN; Protocol PRN Reason: anxiety/opiate w/drawal Last Admin: 11/08/22 03:57 Dose: 0.1 mg Clonidine HCl (Clonidine Hcl 0.1 Mg Tablet) 0.3 mg PO BEDTIME [facility]; Protocol Cyclobenzaprine HCl (Cyclobenzaprine Hcl 10 Mg Tablet) 10 mg PO TID PRN PRN Reason: muscle cramps Last Admin: 11/08/22 13:27 Dose: 10 mg Dicyclomine HCl (Dicyclomine Hcl 10 Mg Capsule) 10 mg PO Q4H PRN PRN Reason: stomach cramps Folic Acid (Folic Acid 1 Mg Tablet) 1 mg PO DAILY [facility] Last Admin: 11/08/22 08:53 Dose: 1 mg Gabapentin (Gabapentin 300 Mg Capsule) 600 mg PO TID [facility] Last Admin: 11/08/22 14:07 Dose: 600 mg Hydroxyzine HCl (Hydroxyzine Hcl 50 Mg Tablet) 50 mg PO Q6H PRN PRN Reason: Anxiety Last Admin: 11/08/22 00:03 Dose: 50 mg Ibuprofen (Ibuprofen 800 Mg Tablet) 800 mg PO Q6H PRN PRN Reason: Pain, Moderate (Pain Scale 4-6 Last Admin: 11/08/22 00:03 Dose: 800 mg Loperamide HCl (Loperamide Hcl 2 Mg Capsule) 2 mg PO Q6H PRN PRN Reason: loose stool Magnesium Hydroxide (Milk Of Magnesia 30 Ml Oral.Susp) 30 ml PO DAILY PRN PRN Reason: Constipation Mirtazapine (Mirtazapine 15 Mg Tablet) 15 mg PO BEDTIME [facility] Last Admin: 11/07/22 20:28 Dose: 15 mg Mirtazapine (Mirtazapine 15 Mg Tablet) 15 mg PO BEDTIME PRN PRN Reason: insomnia Last Admin: 11/08/22 00:03 Dose: 15 mg Multivitamins/Vitamin C (Multivitamin Tablet) 1 tab PO DAILY [facility] Last Admin: 11/08/22 08:53 Dose: 1 tab Neomycin/Polymyxin/Hydrocortisone (Neomycin/Polymyxin/Hc Otic Terese Bottle) 4 drop EAR-BOTH TID [facility] Stop: 11/13/22 09:01 Last Admin: 11/08/22 16:25 Dose: 4 drop Nicotine Polacrilex (Nicotine Polacrilex 2 Mg Gum) 4 mg BUCCAL Q2H PRN PRN Reason: Nicotine Cravings Last Admin: 11/08/22 16:27 Dose: 4 mg Olanzapine (Olanzapine 5 Mg Tablet) 5 mg PO TID PRN PRN Reason: agitation Thiamine HCl (Thiamine Hcl 100 Mg Tablet) 100 mg PO DAILY [facility] Last Admin: 11/08/22 08:53 Dose: 100 mg Allergies Allergies Allergy/AdvReac Type Severity Reaction Status Date / Time No Known Allergies Allergy Verified 03/23/22 11:25 [No Known Allergies*] Assessment & Plan Assessment & Plan (1) Opioid use disorder: Status: Acute Code(s): F11.90 - Opioid use, unspecified, uncomplicated Assessment and Plan: * will restart suboxone 2mg QD for now and titrate if necessary. Patient aware that this will be the starting dose and he is agreeable. (2) Cocaine use disorder, moderate, dependence: Status: Acute Code(s): F14.20 - Cocaine dependence, uncomplicated (3) MDD (major depressive disorder), recurrent episode, moderate: Status: Acute Code(s): F33.1 - Major depressive disorder, recurrent, moderate Plan 11/06 increase ibuprofen to 800mg po q6h, increase gabapentin to 300mg po TID. Pt to be seen by addiction medicine tomorrow to start suboxone. 11/07: started suboxone 2 mg daily. increased clonidine to 0.2 mg QHS. increase gabapentin once pt feeling less sedated. 11/08: increase clonidine to 0.3 mg QHS, increase gabapentin to 600 TID. continue suboxone 2 mg daily, to be titrated upward to 4 BID per karyn padron. Reason for contiued inpatient stay Substantial Risk for: inability to function and rapid decompensation Time Spent With Patient Time: Total time managing care of this patient today _25___ minutes.
[2022-11-08 19:45] VITALS: BP 110/64; PULSE 88; RESP 16; TEMP 36.1; O2SAT 98
[2022-11-08] MEDS: cloNIDine HCL 0.1 MG TABLET 0.3 MG PO (20:13)
[2022-11-09 06:00] VITALS: BP 111/68; PULSE 97; RESP 16; TEMP 36.7; O2SAT 98
[2022-11-09] MEDS: Buprenorphine/Naloxone 4/1 mg FILM 1 FILM SUBLINGUAL (09:15)
[2022-11-09] MEDS: buPROPion HCl XL 150 MG TAB.ER.24H PO (09:16)
[2022-11-09] MEDS: Thiamine HCL 100 MG TABLET PO (09:16)
[2022-11-09] MEDS: Folic Acid 1 MG TABLET PO (09:16)
[2022-11-09] MEDS: Gabapentin 300 MG CAPSULE 600 MG PO ×3 (09:16→21:02)
[2022-11-09] MEDS: Multivitamin TABLET 1 TAB PO (09:16)
[2022-11-09] MEDS: NeoMYCIN/Polymyxin/HC Otic Sol BOTTLE 4 DROP EAR-BOTH ×2 (09:17→14:55)
[2022-11-09] MEDS: Nicotine Polacrilex 2 MG GUM 4 MG BUCCAL ×2 (14:53→20:14)
--- NOTE | 2022-11-09 15:41 | P.PNPSI_ITS ---
Subjective Subjective Date of Service: 11/09/22 Reason For Visit: SI Interim History: calm, cooperative. got 4 mg suboxone today after having had 2 mg yesterday. 8 mg is target dose. no questions or complaints. planning to DC to a friend's house for 14 days and find an apartment of his own in the meantime. per staff, anxious. preoccupied with housing. no SI/HI/AVH. safe on unit. good appetite. restless sleep with MNA. Mental Status Exam Mental Status Exam Narrative: Appearance: casually groomed, fair hygiene in NAD Behavior: cooperative Psychomotor: no agitation or retardation noted Speech: clear, normal rate/rhythm/volume, spontaneous TP: linear TC: no s/s of psychosis, wanting to get help for both substance use and psych. Mood: some anxiety Affect: brightens at times, somewhat anxious SI: none expressed HI: none AH/VH: none Delusions: none Insight/judgment: fair x 2. Memory/cog: alert, oriented x 3. grossly intact to conversational testing. Diagnostics Vital Signs (24Hr): Vital Signs - 24 hr 11/08/22 19:45 11/09/22 06:00 Temperature 97 F 98.0 F Pulse Rate 88 97 Respiratory Rate 16 16 Blood Pressure 110/64 111/68 Pulse Oximetry 98 98 Oxygen Delivery Method Room Air Room Air BMI result Body Mass Index 21.9 Labs 11/03/22 00:32 11/03/22 00:32 Medications Medications Current Medications Acetaminophen (Acetaminophen 325 Mg Tablet) 650 mg PO Q6H PRN PRN Reason: Headache/Pain Mild Scale (1-3) Last Admin: 11/04/22 17:54 Dose: 650 mg Al Hydroxide/Mg Hydroxide (Magnesium Hydrox/Alum Hydrox 30 Ml Oral.Susp) 30 ml PO Q6H PRN PRN Reason: Heartburn/Nausea Buprenorphine/Naloxone (Buprenorphine/Naloxone 4/1 Mg Film) 1 film SUBLINGUAL DAILY [facility] Last Admin: 11/09/22 09:15 Dose: 1 film Bupropion HCl (Bupropion Hcl Xl 150 Mg Tab.Er.24h) 150 mg PO DAILY [facility] Last Admin: 11/09/22 09:16 Dose: 150 mg Clonidine HCl (Clonidine Hcl 0.1 Mg Tablet) 0.1 mg PO Q4H PRN; Protocol PRN Reason: anxiety/opiate w/drawal Last Admin: 11/08/22 03:57 Dose: 0.1 mg Clonidine HCl (Clonidine Hcl 0.1 Mg Tablet) 0.3 mg PO BEDTIME [facility]; Protocol Last Admin: 11/08/22 20:13 Dose: 0.3 mg Cyclobenzaprine HCl (Cyclobenzaprine Hcl 10 Mg Tablet) 10 mg PO TID PRN PRN Reason: muscle cramps Last Admin: 11/08/22 20:12 Dose: 10 mg Dicyclomine HCl (Dicyclomine Hcl 10 Mg Capsule) 10 mg PO Q4H PRN PRN Reason: stomach cramps Folic Acid (Folic Acid 1 Mg Tablet) 1 mg PO DAILY [facility] Last Admin: 11/09/22 09:16 Dose: 1 mg Gabapentin (Gabapentin 300 Mg Capsule) 600 mg PO TID [facility] Last Admin: 11/09/22 14:53 Dose: 600 mg Hydroxyzine HCl (Hydroxyzine Hcl 50 Mg Tablet) 50 mg PO Q6H PRN PRN Reason: Anxiety Last Admin: 11/08/22 00:03 Dose: 50 mg Ibuprofen (Ibuprofen 800 Mg Tablet) 800 mg PO Q6H PRN PRN Reason: Pain, Moderate (Pain Scale 4-6 Last Admin: 11/08/22 00:03 Dose: 800 mg Loperamide HCl (Loperamide Hcl 2 Mg Capsule) 2 mg PO Q6H PRN PRN Reason: loose stool Magnesium Hydroxide (Milk Of Magnesia 30 Ml Oral.Susp) 30 ml PO DAILY PRN PRN Reason: Constipation Mirtazapine (Mirtazapine 15 Mg Tablet) 15 mg PO BEDTIME [facility] Last Admin: 11/08/22 20:12 Dose: 15 mg Mirtazapine (Mirtazapine 15 Mg Tablet) 15 mg PO BEDTIME PRN PRN Reason: insomnia Last Admin: 11/08/22 00:03 Dose: 15 mg Multivitamins/Vitamin C (Multivitamin Tablet) 1 tab PO DAILY [facility] Last Admin: 11/09/22 09:16 Dose: 1 tab Neomycin/Polymyxin/Hydrocortisone (Neomycin/Polymyxin/Hc Otic Terese Bottle) 4 drop EAR-BOTH TID [facility] Stop: 11/13/22 09:01 Last Admin: 11/09/22 14:55 Dose: 4 drop Nicotine Polacrilex (Nicotine Polacrilex 2 Mg Gum) 4 mg BUCCAL Q2H PRN PRN Reason: Nicotine Cravings Last Admin: 11/09/22 14:53 Dose: 4 mg Olanzapine (Olanzapine 5 Mg Tablet) 5 mg PO TID PRN PRN Reason: agitation Thiamine HCl (Thiamine Hcl 100 Mg Tablet) 100 mg PO DAILY [facility] Last Admin: 11/09/22 09:16 Dose: 100 mg Allergies Allergies Allergy/AdvReac Type Severity Reaction Status Date / Time No Known Allergies Allergy Verified 03/23/22 11:25 [No Known Allergies*] Assessment & Plan Assessment & Plan (1) Opioid use disorder: Status: Acute Code(s): F11.90 - Opioid use, unspecified, uncomplicated Assessment and Plan: * will restart suboxone 2mg QD for now and titrate if necessary. Patient aware that this will be the starting dose and he is agreeable. (2) Cocaine use disorder, moderate, dependence: Status: Acute Code(s): F14.20 - Cocaine dependence, uncomplicated (3) MDD (major depressive disorder), recurrent episode, moderate: Status: Acute Code(s): F33.1 - Major depressive disorder, recurrent, moderate Plan 11/06 increase ibuprofen to 800mg po q6h, increase gabapentin to 300mg po TID. Pt to be seen by addiction medicine tomorrow to start suboxone. 11/07: started suboxone 2 mg daily. increased clonidine to 0.2 mg QHS. increase gabapentin once pt feeling less sedated. 11/08: increase clonidine to 0.3 mg QHS, increase gabapentin to 600 TID. continue suboxone 2 mg daily, to be titrated upward to 4 BID per karyn padron. 11/09: suboxone increased to 4 mg as of today. otherwise no medication changes. planning to DC to friend's place for 14 days. Reason for contiued inpatient stay Substantial Risk for: harm to self, inability to function and rapid decompensation Time Spent With Patient Time: Total time managing care of this patient today _25___ minutes.
[2022-11-09 20:40] VITALS: BP 140/64; PULSE 95; RESP 18; TEMP 36.2; O2SAT 96
[2022-11-09] MEDS: cloNIDine HCL 0.1 MG TABLET 0.3 MG PO (21:01)
[2022-11-09] MEDS: Mirtazapine 15 MG TABLET PO (21:02)
[2022-11-10] MEDS: Cyclobenzaprine HCl 10 MG TABLET PO ×2 (03:25→08:53)
[2022-11-10] MEDS: Mirtazapine 15 MG TABLET PO ×2 (03:25→21:43)
[2022-11-10] MEDS: Ibuprofen 800 MG TABLET PO (03:25)
[2022-11-10 06:00] VITALS: BP 98/54; PULSE 70; RESP 16; TEMP 36.2; O2SAT 97
[2022-11-10 07:00] VITALS: BMI 25.4
[2022-11-10] MEDS: NeoMYCIN/Polymyxin/HC Otic Sol BOTTLE 4 DROP EAR-BOTH ×3 (08:52→22:30)
[2022-11-10] MEDS: Buprenorphine/Naloxone 4/1 mg FILM 1 FILM SUBLINGUAL ×2 (08:53→18:45)
[2022-11-10] MEDS: Multivitamin TABLET 1 TAB PO (08:53)
[2022-11-10] MEDS: Gabapentin 300 MG CAPSULE 600 MG PO (08:53)
[2022-11-10] MEDS: Thiamine HCL 100 MG TABLET PO (08:53)
[2022-11-10] MEDS: Nicotine Polacrilex 2 MG GUM 4 MG BUCCAL ×4 (08:53→21:45)
[2022-11-10] MEDS: buPROPion HCl XL 150 MG TAB.ER.24H PO (08:53)
[2022-11-10] MEDS: Folic Acid 1 MG TABLET PO (08:54)
--- NOTE | 2022-11-10 12:38 | PM.PSYDC ---
DS: Providers Provider Date of Service: 11/10/22 Date of admission: 11/04/22 17:15 Primary care physician: Unknown Physician Consults: 11/06/22 09:59 Consult to Hospitalist Routine Consulting Provider: Hospitalist Reason For Exam: blood both ears 11/06/22 15:32 Addiction Medicine Routine Consulting Provider: Addiction Covering Reason for consultation: restarting suboxone Has provider been notified: Yes DS: Diagnosis Discharge Diagnosis (1) Opioid use disorder: Status: Acute (2) Cocaine use disorder, moderate, dependence: Status: Acute (3) MDD (major depressive disorder), recurrent episode, moderate: Status: Acute DS: Medications Discharge Medications Home Medications: Previous Rx's Medication Instructions Recorded buprenorphine 4 mg-naloxone 1 mg 1 film sublingual BID 4 days #8 ea 11/10/22 sublingual film (Suboxone) bupropion HCl 150 mg 24 hr tablet, 150 mg PO DAILY 30 days #30 tabs 11/10/22 extended release clonidine HCl 0.1 mg tablet 0.3 mg PO BEDTIME 30 days #90 tabs 11/10/22 cyclobenzaprine 10 mg tablet 10 mg PO TID PRN muscle cramps 10 11/10/22 days #30 tabs gabapentin 300 mg capsule 800 mg PO TID 30 days #0 caps 11/10/22 gabapentin 800 mg tablet 800 mg PO TID 30 days #90 tabs 11/10/22 mirtazapine 15 mg tablet 15 mg PO BEDTIME 30 days #30 tabs 11/10/22 nicotine (polacrilex) 2 mg gum 4 mg buccal Q2H PRN Nicotine 11/10/22 Cravings 30 days #120 ea Mental Status Exam Mental Status Exam Narrative: Appearance: casually groomed, fair hygiene in NAD Behavior: cooperative Psychomotor: no agitation or retardation noted Speech: clear, normal rate/rhythm/volume, spontaneous TP: linear TC: no s/s of psychosis, wanting to get help for both substance use and psych. Mood: good Affect: brightens at times, normo-intense, non-labile. SI: none HI: none AH/VH: none Delusions: none Insight/judgment: fair x 2. Memory/cog: alert, oriented x 3. grossly intact to conversational testing. Data Data Completed and Pending Completed studies during hospitalization [Text1]: 11/03/22 11/05/22 11/05/22 00:32 08:04 08:04 Estimat Average Glucose 108 Hemoglobin A1c % 5.4 Triglycerides 114 Cholesterol 202 LDL Cholesterol, Calc 124 HDL Cholesterol 56 Free T4 0.98 Hep Bs Antigen Negative Hep Bs Antibody REACTIVE Hep B Core Total Ab Nonreactive Hepatitis C Antibody NonReactive DS: Summary Hospital Course Hospital Course: per 11/05 admission note: Mr. Parmar is a 47 year-old male with a hx of substance use, mood disorder, who has spend most of adult life in shelter due to A&B charges. Pt was brought via EMS after found unresponsive due to opioid OD, given narcan with good effect. According to EMS report, pt initially denied it was a suicide attempt or intentional, but later while in hospital and when he was being discharged he tried to wrap a blood pressured string around his neck. In the ED, his utox positive for fentanyl, opioids and cocaine. BAL negative. On the unit, pt reports he has been struggled in the community since he was released from shelter back in January of 2022. He reports this is the longest he has been out of [facility] and he has difficulty coping outside of structured environment of shelter. He reports feeling depressed, intermittent suicidal ideation. He has a vague report of hearing voices. He reports poor sleep and appetite. He reports drug of choice if cocaine. He denies alcohol use. He continues to report suicidal ideation but denies at this time any plan or intent. He denies HI. He reports he does not have OP psych providers and have not continued medications prescribed while he was in [facility]. He states he has been on combination of wellbutrin, clonidine and remeron. He reports he has taken medications for voices but can't remember name. Pt reports while in Longterm he was on suboxone with good effect and would like to continue it. Past Psychiatric History: inpt: M5 2015 OP: none now Past trials: wellbutrin, clonidine, seroquel (too sedating), suboxone. Medical Evaluation Reviewed: Yes hronic back pain PMFSH Medical History? Substance abuse Family History: none Social History: Pt currently homeless, long hx of encarceration. He has 2 daughter ages 27, 19 which whom he does not have contact. Substance History: Cocaine use since 13, daily since he was released from [facility] 01/2022 Opioid- since [age] daily one bag since 01/2022.? Denies alcohol use. Trauma History: physical/emotional, no details discussed. Precis: 11/05: start wellbutrin XL 150mg po daily, clonidine 0.1mg po qhs, remeron 15mg po qhs. consult addiction to start suboxone. 11/06: increase ibuprofen to 800mg po q6h, increase gabapentin to 300mg po TID. Pt to be seen by addiction medicine tomorrow to start suboxone. 11/07: started suboxone 2 mg daily.? increased clonidine to 0.2 mg QHS.? increase gabapentin once pt feeling less sedated. 11/08: increase clonidine to 0.3 mg QHS, increase gabapentin to 600 TID.? continue suboxone 2 mg daily, to be titrated upward to 4 BID per karyn padron. 11/09: suboxone increased to 4 mg as of today.? otherwise no medication changes.? planning to DC to friend's place for 14 days. 11/10: suboxone increased to 4 BID as of today. stable, planning for discharge tomorrow. 11/11: discharged to friend's home as per pt request, aftercare in place, no safety concerns. Time Spent with Patient Time attestation: Total time managing care of this patient today ____ minutes. Time spent: Greater than 30 minutes Discharge Plan Discharge Anticipated Discharge Date/Time: 11/11/22 12:30 Patient Disposition: Snf Discharge Diagnosis: Cocaine Use Disorder Opioid Use Disorder Major Depressive Disorder, Recurrent, Moderate Referrals: Rachell Phelps (Therapy) [Other] - 11/15/22 2:00 pm (IN OFFICE APPOINTMENT -Please arrive fifteen minutes prior to your appointment to fill out intake paperwork. ) Lizzeth Castillo (Psychiatry) [Other] - 12/07/22 11:00 am (IN OFFICE APPOINTMENT -Psychiatric Evaluation ) Lizzeth Castillo (Psychiatry) [Other] - 01/05/23 9:00 am (IN OFFICE APPOINTMENT -Medication Management ) [facility] Suboxone [Other] - 11/15/22 10:00 am (IN OFFICE INTAKE APPOINTMENT -Your appointment will be with Alexandra Wynn. ) [facility] [Provider Group] - 1 Week (Dr. diana cespedes at 9:30) Discharge Medications: New cyclobenzaprine 10 mg Tablet 10 mg PO TID PRN (Reason: muscle cramps) 10 Days Qty: 30 0RF clonidine HCl 0.1 mg Tablet 0.3 mg PO BEDTIME 30 Days Qty: 90 0RF Protocol: Hold for SBP< HOLD for SBP < : 90 nicotine (polacrilex) 2 mg Gum 4 mg buccal Q2H PRN (Reason: Nicotine Cravings) 30 Days Qty: 120 0RF gabapentin 300 mg Capsule 800 mg PO TID 30 Days Qty: 0 0RF bupropion HCl 150 mg Tablet Extended Release 24 Hr 150 mg PO DAILY 30 Days Qty: 30 0RF buprenorphine-naloxone [Suboxone] 4-1 mg Film 1 film sublingual BID 4 Days Qty: 8 0RF mirtazapine 15 mg Tablet 15 mg PO BEDTIME 30 Days Qty: 30 0RF gabapentin 800 mg tablet 800 mg PO TID 30 Days Qty: 90 0RF Discharge Orders: Discharge Order (Routine); Ordered 11/11/22 Ordered By: Rojas Beck Diet: Advance to usual diet Activity on Discharge: As tolerated Stand Alone Forms: Patient Portal Discharge page, Community Support Care Plan Goals: remain safe and sober in the outpatient treatment setting Health Concerns: none Plan of Treatment: take medications as prescribed, attend appointments as scheduled Assessment: not at imminent risk of harm to self or others Discharge Date/Time: 11/11/22 12:15
[2022-11-10] MEDS: Gabapentin 400 MG CAPSULE 800 MG PO ×2 (15:55→21:42)
--- NOTE | 2022-11-10 17:13 | P.PNADD_ITS ---
Subjective Subjective Date of Service: 11/10/22 Reason For Visit: SI Interim History: Patient seen in follow up Currently prescribed Suboxone 4mg QD. Reports he is doing well. Pleased to be back on Suboxone, would like to be at 8mg QD (which he splits in half and takes 4mg BID) Plan to discharge Monday and follow up at [facility] to continue treatment for OUD. Review of Systems Constitutional: Reports as per HPI and Reports no additional constitutional complaints Mental Status Exam Mental Status Exam Patient Appearance: Well Grooomed and Appropriate Level of Consciousness: Awake, Appropriate and Alert Patient Behavior: Appropriate Diagnostics Vital Signs (24Hr): Vital Signs - 24 hr 11/09/22 20:40 11/10/22 06:00 Temperature 97.2 F 97.2 F Pulse Rate 95 70 Respiratory Rate 18 16 Blood Pressure 140/64 H 98/54 L Pulse Oximetry 96 97 Oxygen Delivery Method Room Air Room Air BMI result Body Mass Index 25.4 Labs 11/03/22 00:32 11/03/22 00:32 Medications Medications Current Medications Acetaminophen (Acetaminophen 325 Mg Tablet) 650 mg PO Q6H PRN PRN Reason: Headache/Pain Mild Scale (1-3) Last Admin: 11/04/22 17:54 Dose: 650 mg Al Hydroxide/Mg Hydroxide (Magnesium Hydrox/Alum Hydrox 30 Ml Oral.Susp) 30 ml PO Q6H PRN PRN Reason: Heartburn/Nausea Buprenorphine/Naloxone (Buprenorphine/Naloxone 4/1 Mg Film) 1 film SUBLINGUAL BID@0900,1800 [facility] Last Admin: 11/10/22 08:53 Dose: 1 film Bupropion HCl (Bupropion Hcl Xl 150 Mg Tab.Er.24h) 150 mg PO DAILY [facility] Last Admin: 11/10/22 08:53 Dose: 150 mg Clonidine HCl (Clonidine Hcl 0.1 Mg Tablet) 0.1 mg PO Q4H PRN; Protocol PRN Reason: anxiety/opiate w/drawal Last Admin: 11/08/22 03:57 Dose: 0.1 mg Clonidine HCl (Clonidine Hcl 0.1 Mg Tablet) 0.3 mg PO BEDTIME [facility]; Protocol Last Admin: 11/09/22 21:01 Dose: 0.3 mg Cyclobenzaprine HCl (Cyclobenzaprine Hcl 10 Mg Tablet) 10 mg PO TID PRN PRN Reason: muscle cramps Last Admin: 11/10/22 08:53 Dose: 10 mg Dicyclomine HCl (Dicyclomine Hcl 10 Mg Capsule) 10 mg PO Q4H PRN PRN Reason: stomach cramps Folic Acid (Folic Acid 1 Mg Tablet) 1 mg PO DAILY [facility] Last Admin: 11/10/22 08:54 Dose: 1 mg Gabapentin (Gabapentin 400 Mg Capsule) 800 mg PO TID [facility] Last Admin: 11/10/22 15:55 Dose: 800 mg Hydroxyzine HCl (Hydroxyzine Hcl 50 Mg Tablet) 50 mg PO Q6H PRN PRN Reason: Anxiety Last Admin: 11/08/22 00:03 Dose: 50 mg Ibuprofen (Ibuprofen 800 Mg Tablet) 800 mg PO Q6H PRN PRN Reason: Pain, Moderate (Pain Scale 4-6 Last Admin: 11/10/22 03:25 Dose: 800 mg Loperamide HCl (Loperamide Hcl 2 Mg Capsule) 2 mg PO Q6H PRN PRN Reason: loose stool Magnesium Hydroxide (Milk Of Magnesia 30 Ml Oral.Susp) 30 ml PO DAILY PRN PRN Reason: Constipation Mirtazapine (Mirtazapine 15 Mg Tablet) 15 mg PO BEDTIME [facility] Last Admin: 11/09/22 21:02 Dose: 15 mg Mirtazapine (Mirtazapine 15 Mg Tablet) 15 mg PO BEDTIME PRN PRN Reason: insomnia Last Admin: 11/10/22 03:25 Dose: 15 mg Multivitamins/Vitamin C (Multivitamin Tablet) 1 tab PO DAILY [facility] Last Admin: 11/10/22 08:53 Dose: 1 tab Neomycin/Polymyxin/Hydrocortisone (Neomycin/Polymyxin/Hc Otic Terese Bottle) 4 drop EAR-BOTH TID [facility] Stop: 11/13/22 09:01 Last Admin: 11/10/22 16:12 Dose: 4 drop Nicotine Polacrilex (Nicotine Polacrilex 2 Mg Gum) 4 mg BUCCAL Q2H PRN PRN Reason: Nicotine Cravings Last Admin: 11/10/22 13:58 Dose: 4 mg Olanzapine (Olanzapine 5 Mg Tablet) 5 mg PO TID PRN PRN Reason: agitation Thiamine HCl (Thiamine Hcl 100 Mg Tablet) 100 mg PO DAILY [facility] Last Admin: 11/10/22 08:53 Dose: 100 mg Allergies Allergies Allergy/AdvReac Type Severity Reaction Status Date / Time No Known Allergies Allergy Verified 03/23/22 11:25 [No Known Allergies*] Assessment & Plan Assessment & Plan (1) Opioid use disorder: Status: Acute Code(s): F11.90 - Opioid use, unspecified, uncomplicated Assessment and Plan: * increase suboxone to 4mg BID * will continue treatment outpatient at [facility] Total time managing care of this patient today __15__ minutes.
[2022-11-10 20:20] VITALS: BP 107/78; PULSE 94; RESP 18; TEMP 36.2; O2SAT 98
[2022-11-10] MEDS: cloNIDine HCL 0.1 MG TABLET 0.3 MG PO (21:42)
[2022-11-11] MEDS: Mirtazapine 15 MG TABLET PO (01:51)
[2022-11-11] MEDS: Gabapentin 400 MG CAPSULE 800 MG PO (08:22)
[2022-11-11] MEDS: buPROPion HCl XL 150 MG TAB.ER.24H PO (08:22)
[2022-11-11] MEDS: Thiamine HCL 100 MG TABLET PO (08:22)
[2022-11-11] MEDS: Folic Acid 1 MG TABLET PO (08:22)
[2022-11-11] MEDS: Buprenorphine/Naloxone 4/1 mg FILM 1 FILM SUBLINGUAL (08:22)
[2022-11-11] MEDS: Multivitamin TABLET 1 TAB PO (08:23)
[2022-11-11 08:57] VITALS: BP 107/64; PULSE 78; RESP 16; TEMP 36.2; O2SAT 96
== END 2022-11-11 12:15 | disposition home or self-care (01) | DRG 751 ==
LOC: HO.ED 11-03 11:36 → HO.PADLT16 11-04 17:23
PROVIDERS: Internal Medicine; Admitting Provider Psychiatry & Neurology Psychiatry; Emergency Provider Emergency Medicine Emergency Medical Services; Visit Provider Psychiatry & Neurology Psychiatry
DX: F33.1 Major depressive disorder, recurrent, moderate (principal); R45.851 Suicidal ideations; F14.20 Cocaine dependence, uncomplicated; F11.20 Opioid dependence, uncomplicated; B36.0 Pityriasis versicolor; G89.29 Other chronic pain; M54.50 Low back pain, unspecified; H60.93 Unspecified otitis externa, bilateral; F17.200 Nicotine dependence, unspecified, uncomplicated; Z20.822 Contact with and (suspected) exposure to COVID-19; Z71.6 Tobacco abuse counseling; Z79.899 Other long term (current) drug therapy
CPT/HCPCS: 36415; 80053; 80061; 80307; 81003; 83036; 84439; 85025; 86803; 87635; 93005; 96361; 96374; 99285; J2405; S9485

== ENCOUNTER → 2022-11-23 09:12 | Outpatient (BNVA) | payer MEDICAID, SELFPAY | PROVIDERS: Visit Provider Surgery | DX: R19.09 Other intra-abdominal and pelvic swelling, mass and lump (principal); N48.5 Ulcer of penis; F33.1 Major depressive disorder, recurrent, moderate; F14.20 Cocaine dependence, uncomplicated; F11.20 Opioid dependence, uncomplicated | CPT/HCPCS: 99202 ==